=== PATIENT | female | born 1935 | race African-American/Black ===

== ENCOUNTER → 2016-08-12 | Outpatient (CLI) | payer MEDICARE, OTHER ==
[2016-08-12 11:04] LABS: APPEARANCE,URINE CLEAR; BILIRUBIN,URINE NEGATIVE (NEGATIVE); GLUCOSE, URINE NEGATIVE (NEGATIVE); KETONES,URINE NEGATIVE (NEGATIVE); LEUKOCYTE ESTERASE,URINE NEGATIVE (NEGATIVE); NITRITE,URINE NEGATIVE (NEGATIVE); PROTEIN,URINE NEGATIVE (NEGATIVE); URINE SPECIFIC GRAVITY 1.008; UROBILINOGEN,URINE NEGATIVE mg/dL (<2.0)
[2016-08-12 11:17] LABS: ABSOLUTE EOSINOPHILS # (AUTO) 0.2 10^3/uL (0.0-0.6); ABSOLUTE LYMPHOCYTES (AUTO) 1.9 10^3/uL (0.5-4.7); ABSOLUTE MONOCYTES (AUTO) 0.6 10^3/uL (0.1-1.4); BASOPHILS % (AUTO) 0.5 % (0-2); EOSINOPHILS % (AUTO) 3.4 % (0-6); HEMATOCRIT 37.4 % (36.0-47.0); HEMOGLOBIN 12.1 g/dL (12.0-15.5); HGB HCT DIFFERENCE -1.1; MEAN CORPUSCULAR HEMOGLOBIN 27.8 pg (27.0-33.4); MEAN CORPUSCULAR HGB CONC 32.4 g/dL (32.0-36.0); MEAN CORPUSCULAR VOLUME 86 fl (80-97); MONOCYTES % (AUTO) 9.8 % (3-13); RED BLOOD COUNT 4.37 10^6/uL (3.72-5.28); RED CELL DISTRIBUTION WIDTH 15.3 % (11.5-14.0); SEGMENTED NEUTROPHILS % (AUTO) 53.3 % (42-78); WHITE BLOOD COUNT 5.7 10^3/uL (4.0-10.5)
[2016-08-12 11:35] LABS: ANION GAP 9 (5-19); BLOOD UREA NITROGEN 36 mg/dL (7-20); CALCIUM 9.5 mg/dL (8.4-10.2); CARBON DIOXIDE 25 mmol/L (22-30); CHLORIDE 106 mmol/L (98-107); CREATININE RESULT 1.69 mg/dL (0.52-1.25); GLUCOSE 97 mg/dL (75-110); POTASSIUM 5.4 mmol/L (3.6-5.0); SODIUM 139.8 mmol/L (137-145)
== END ==
LOC: OD 10:02
PROVIDERS: ATTEND Internal Medicine Nephrology
DX: I12.9 Hypertensive chronic kidney disease with stage 1 through stage 4 chronic kidney disease, or unspecified chronic kidney disease (principal); N18.3 Chronic kidney disease, stage 3 (moderate); E87.5 Hyperkalemia
CPT/HCPCS: 36415; 80048; 81001; 85025

== ENCOUNTER → 2016-08-12 | Outpatient (CLI) | payer MEDICARE, OTHER ==
--- NOTE | 2016-08-12 12:33 | WOMENS IMAGING REPORT ---
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 Additional selected color Doppler and spectral images recorded. LIMITATIONS: None. FINDINGS: RIGHT KIDNEY: Normal size, 10.9 x 4.9 x 5.4 cm. Normal echogenicity. No solid or susp icious masses. No hydronephrosis. No calcifications. LEFT KIDNEY: Normal size, 9.3 x 4.7 x 4.8 cm. Normal echogenicity. No solid or suspicious masses . No hydronephrosis. No calcifications. BLADDER: The bladder is incompletely filled but generally unremarkable. OTHER FINDINGS: No other significant finding. IMPRESSION: NORMAL RENAL AND BLADDER ULTRASOUND. TECHNICAL DOCUMENTATION: JOB ID: [id number] [employer]- All Rights Reserved
== END ==
LOC: RAD 09:12
PROVIDERS: ATTEND Internal Medicine Nephrology
DX: I12.9 Hypertensive chronic kidney disease with stage 1 through stage 4 chronic kidney disease, or unspecified chronic kidney disease (principal); N18.3 Chronic kidney disease, stage 3 (moderate)
CPT/HCPCS: 36415; 76770; 80048; 81001; 85025

== ENCOUNTER → 2016-09-03 | Outpatient (CLI) | payer MEDICARE, OTHER | LOC: OD 09:59 | PROVIDERS: ATTEND Internal Medicine Nephrology | DX: E87.5 Hyperkalemia (principal) | CPT/HCPCS: 36415; 84132 ==

== ENCOUNTER → 2016-09-06 | Outpatient (CLI) | payer MEDICARE, OTHER | LOC: OD 07:05 | PROVIDERS: ATTEND Physician Assistant Medical | DX: E87.5 Hyperkalemia (principal) | CPT/HCPCS: 36415; 84132 ==

== ENCOUNTER → 2016-11-15 | Outpatient (CLI) | payer MEDICARE, OTHER ==
--- NOTE | 2016-11-15 17:13 | WOMENS IMAGING REPORT ---
EXAM DESCRIPTION: 3D SCREENING MAMMO BILAT COMPLETED DATE/TIME: 11/15/2016 8:45 am REASON FOR STUDY: SCREENING MAMMO Z12.31 ENCNTR SCREEN MAMMOGRAM FOR MALIGNANT NEOPLASM OF [place] COMPARISON: 11/13/2015 and 08/13/2014. TECHNIQUE: Standard craniocaudal and mediolateral oblique views of each breast recorded using digita l acquisition and breast tomosynthesis. LIMITATIONS: None. FINDINGS: No masses, calcifications or architectural distortion. No areas of suspicion. Read with the assistance of CAD. .[facility] - R2 Cenova Version 1.3 .[facility] - R2 Cenova Version 1.3 .[facility] - R2 Cenova Version 2.4 .[facility] - R2 Cenova Version 2.4 .[facility] - R2 Trick Rodeo Rider Version 9.2 IMPRESSION: NORMAL MAMMOGRAM. BIRADS 1. BREAST DENSITY: b. There are scattered areas of fibroglandular density. BIRAD: 1 NEGATIVE RECOMMENDATION: ROUTINE SCREENING COMMENT: The patient has been notified of the results by letter per SA requirements. Additional no tification policies are in place for contacting patient with suspicious or incomplete findings. Quality ID #[id number]: The [employer] recommends an annual screening mammogram for women aged 40 years or over. This facility utilizes a reminder system to ensure that all patients receive reminder letters, and/or direct phone calls for appointments. This includes reminders for routine scr eening mammograms, diagnostic mammograms, or other Breast Imaging Interventions when appropriate. Th is patient will be placed in the appropriate reminder system. The [employer] (ACR) has developed recommendations for screening MRI of the breast s in certain patient populations, to be used in conjunction with mammography. Breast MRI surveillanc e may be appropriate for women with more than 20% lifetime risk of developing breast cancer as deter mined by genetic testing, significant family history of the disease, or history of mantle radiation f or Hodgkins Disease. ACR Practice Guidelines 2008. DBT Technology DBT is a type of tomographic mammography. With conventional mammography, overlapping breast tissue ma y make lesions difficult to detect, even with good compression. DBT uses an x-ray tube that rotates a round the breast, taking images at different angles. These images are then combined to create thin sl ices of the breast that the radiologist can view as a 3D reconstruction. The [employer] (PVT) unit can perform full-field digital mammograms (2D imaging); or DBT (3D imaging); or both, in a combination mode that quickly performs both the mammogram and the tomosynthesis scan while the breast is still compressed. PQRS 6045F: Fluoroscopic imaging is not utilized for breast tomosynthesis. TECHNICAL DOCUMENTATION: FINDING NUMBER: (1) ASSESSMENT: (1) JOB ID: [id number] [employer]- All Rights Reserved
== END ==
LOC: WI 07:48
PROVIDERS: ATTEND Internal Medicine Geriatric Medicine
DX: Z12.31 Encounter for screening mammogram for malignant neoplasm of breast (principal)
CPT/HCPCS: 77063; G0202; 77067

== ENCOUNTER → 2017-03-24 | Outpatient (CLI) | payer MEDICARE, OTHER ==
[2017-03-24 10:59] LABS: HEMATOCRIT 38.7 % (36.0-47.0); HEMOGLOBIN 12.8 g/dL (12.0-15.5); MEAN CORPUSCULAR HEMOGLOBIN 27.4 pg (27.0-33.4); MEAN CORPUSCULAR HGB CONC 33.1 g/dL (32.0-36.0); MEAN CORPUSCULAR VOLUME 83 fl (80-97); PLATELET COUNT 358 10^3/uL (150-450); RED BLOOD COUNT 4.67 10^6/uL (3.72-5.28); RED CELL DISTRIBUTION WIDTH 15.2 % (11.5-14.0); WHITE BLOOD COUNT 5.7 10^3/uL (4.0-10.5)
[2017-03-24 11:15] LABS: ANION GAP 10 (5-19); BLOOD UREA NITROGEN 25 mg/dL (7-20); CALCIUM 10.4 mg/dL (8.4-10.2); CARBON DIOXIDE 25 mmol/L (22-30); CHLORIDE 106 mmol/L (98-107); GLUCOSE 97 mg/dL (75-110); POTASSIUM 5.2 mmol/L (3.6-5.0); SODIUM 141.1 mmol/L (137-145)
== END ==
LOC: OD 10:19
PROVIDERS: ATTEND Physician Assistant Medical
DX: I12.9 Hypertensive chronic kidney disease with stage 1 through stage 4 chronic kidney disease, or unspecified chronic kidney disease (principal); N18.3 Chronic kidney disease, stage 3 (moderate); E87.5 Hyperkalemia
CPT/HCPCS: 36415; 80048; 85027

== ENCOUNTER → 2017-06-23 | Outpatient (CLI) | payer MEDICARE, OTHER ==
[2017-06-23 14:24] LABS: ANION GAP 12 (5-19); BLOOD UREA NITROGEN 34 mg/dL (7-20); CALCIUM 10.2 mg/dL (8.4-10.2); CARBON DIOXIDE 25 mmol/L (22-30); CHLORIDE 107 mmol/L (98-107); GLUCOSE 110 mg/dL (75-110); POTASSIUM 5.1 mmol/L (3.6-5.0); SODIUM 143.6 mmol/L (137-145)
== END ==
LOC: OD 12:21
PROVIDERS: ATTEND Internal Medicine Geriatric Medicine
DX: R89.9 Unspecified abnormal finding in specimens from other organs, systems and tissues (principal)
CPT/HCPCS: 36415; 80048

== ENCOUNTER → 2017-10-17 | Outpatient (CLI) | payer MEDICARE, OTHER ==
[2017-10-17 11:00] LABS: HEMATOCRIT 38.6 % (36.0-47.0); HEMOGLOBIN 13.2 g/dL (12.0-15.5); MEAN CORPUSCULAR HEMOGLOBIN 27.6 pg (27.0-33.4); MEAN CORPUSCULAR HGB CONC 34.2 g/dL (32.0-36.0); MEAN CORPUSCULAR VOLUME 81 fl (80-97); PLATELET COUNT 343 10^3/uL (150-450); RED BLOOD COUNT 4.78 10^6/uL (3.72-5.28); RED CELL DISTRIBUTION WIDTH 15.2 % (11.5-14.0); WHITE BLOOD COUNT 5.9 10^3/uL (4.0-10.5)
[2017-10-17 12:08] LABS: ANION GAP 13 (5-19); BLOOD UREA NITROGEN 24 mg/dL (7-20); CALCIUM 9.6 mg/dL (8.4-10.2); CARBON DIOXIDE 24 mmol/L (22-30); CHLORIDE 105 mmol/L (98-107); GLUCOSE 105 mg/dL (75-110); POTASSIUM 4.4 mmol/L (3.6-5.0); SODIUM 141.6 mmol/L (137-145)
[2017-10-17 12:29] LABS: APPEARANCE,URINE CLEAR; BILIRUBIN,URINE NEGATIVE (NEGATIVE); COLOR,URINE YELLOW; GLUCOSE, URINE NEGATIVE (NEGATIVE); KETONES,URINE NEGATIVE (NEGATIVE); LEUKOCYTE ESTERASE,URINE NEGATIVE (NEGATIVE); NITRITE,URINE NEGATIVE (NEGATIVE); PROTEIN,URINE NEGATIVE (NEGATIVE); URINE SPECIFIC GRAVITY 1.012; UROBILINOGEN,URINE NEGATIVE mg/dL (<2.0)
== END ==
LOC: OD 10:26
PROVIDERS: ATTEND Physician Assistant Medical
DX: I12.9 Hypertensive chronic kidney disease with stage 1 through stage 4 chronic kidney disease, or unspecified chronic kidney disease (principal); N18.3 Chronic kidney disease, stage 3 (moderate); E87.5 Hyperkalemia
CPT/HCPCS: 36415; 80048; 81001; 83970; 84100; 85027

== ENCOUNTER → 2018-04-06 | Outpatient (CLI) | payer MEDICARE, OTHER ==
[2018-04-06 09:43] LABS: HEMATOCRIT 39.2 % (36.0-47.0); HEMOGLOBIN 13.2 g/dL (12.0-15.5); MEAN CORPUSCULAR HEMOGLOBIN 27.5 pg (27.0-33.4); MEAN CORPUSCULAR HGB CONC 33.7 g/dL (32.0-36.0); MEAN CORPUSCULAR VOLUME 82 fl (80-97); PLATELET COUNT 375 10^3/uL (150-450); RED CELL DISTRIBUTION WIDTH 15.9 % (11.5-14.0); WHITE BLOOD COUNT 6.8 10^3/uL (4.0-10.5)
[2018-04-06 09:50] LABS: APPEARANCE,URINE CLEAR; BILIRUBIN,URINE NEGATIVE (NEGATIVE); COLOR,URINE YELLOW; GLUCOSE, URINE NEGATIVE (NEGATIVE); KETONES,URINE NEGATIVE (NEGATIVE); LEUKOCYTE ESTERASE,URINE TRACE (NEGATIVE); NITRITE,URINE NEGATIVE (NEGATIVE); PROTEIN,URINE NEGATIVE (NEGATIVE); URINE SPECIFIC GRAVITY 1.016; UROBILINOGEN,URINE NEGATIVE mg/dL (<2.0)
[2018-04-06 10:07] LABS: ANION GAP 8 (5-19); BLOOD UREA NITROGEN 23 mg/dL (7-20); CALCIUM 9.8 mg/dL (8.4-10.2); CARBON DIOXIDE 27 mmol/L (22-30); CHLORIDE 107 mmol/L (98-107); GLUCOSE 102 mg/dL (75-110); POTASSIUM 4.9 mmol/L (3.6-5.0); SODIUM 142.1 mmol/L (137-145)
== END ==
LOC: OD 09:01
PROVIDERS: ATTEND Physician Assistant Medical
DX: I12.9 Hypertensive chronic kidney disease with stage 1 through stage 4 chronic kidney disease, or unspecified chronic kidney disease (principal); N18.3 Chronic kidney disease, stage 3 (moderate); E87.5 Hyperkalemia
CPT/HCPCS: 36415; 80048; 81001; 85027

== ENCOUNTER → 2018-10-05 | Outpatient (CLI) | payer MEDICARE, OTHER ==
[2018-10-05 10:51] LABS: HEMATOCRIT 39.1 % (36.0-47.0); HEMOGLOBIN 12.9 g/dL (12.0-15.5); MEAN CORPUSCULAR HGB CONC 33.1 g/dL (32.0-36.0); MEAN CORPUSCULAR VOLUME 82 fl (80-97); PLATELET COUNT 313 10^3/uL (150-450); RED BLOOD COUNT 4.79 10^6/uL (3.72-5.28); WHITE BLOOD COUNT 6.7 10^3/uL (4.0-10.5)
[2018-10-05 11:20] LABS: ANION GAP 11 (5-19); BLOOD UREA NITROGEN 19 mg/dL (7-20); CALCIUM 9.8 mg/dL (8.4-10.2); CARBON DIOXIDE 23 mmol/L (22-30); CHLORIDE 106 mmol/L (98-107); GLUCOSE 98 mg/dL (75-110); POTASSIUM 4.5 mmol/L (3.6-5.0)
== END ==
LOC: OD 10:05
PROVIDERS: ATTEND Physician Assistant Medical
DX: I12.9 Hypertensive chronic kidney disease with stage 1 through stage 4 chronic kidney disease, or unspecified chronic kidney disease (principal); N18.3 Chronic kidney disease, stage 3 (moderate); E87.5 Hyperkalemia
CPT/HCPCS: 36415; 80048; 85027

== ENCOUNTER → 2019-05-05 | Outpatient (CLI) | payer MEDICARE, OTHER ==
[2019-05-05 09:54] LABS: ABSOLUTE EOSINOPHILS # (AUTO) 0.2 10^3/uL (0.0-0.6); ABSOLUTE LYMPHOCYTES (AUTO) 1.7 10^3/uL (0.5-4.7); ABSOLUTE MONOCYTES (AUTO) 0.7 10^3/uL (0.1-1.4); ABSOLUTE NEUT (AUTO) 3.3 10^3/uL (1.7-8.2); BASOPHILS % (AUTO) 0.4 % (0-2); HEMATOCRIT 37.9 % (36.0-47.0); HEMOGLOBIN 12.6 g/dL (12.0-15.5); LYMPHOCYTES % (AUTO) 28.8 % (13-45); MEAN CORPUSCULAR HEMOGLOBIN 28.7 pg (27.0-33.4); MEAN CORPUSCULAR HGB CONC 33.2 g/dL (32.0-36.0); MEAN CORPUSCULAR VOLUME 87 fl (80-97); MONOCYTES % (AUTO) 11.3 % (3-13); PLATELET COUNT 367 10^3/uL (150-450); RED BLOOD COUNT 4.39 10^6/uL (3.72-5.28); RED CELL DISTRIBUTION WIDTH 14.9 % (11.5-14.0); SEGMENTED NEUTROPHILS % (AUTO) 56.5 % (42-78); TOTAL CELLS COUNTED % (AUTO) 100 %; WHITE BLOOD COUNT 5.8 10^3/uL (4.0-10.5)
[2019-05-05 09:58] LABS: APPEARANCE,URINE CLEAR; BILIRUBIN,URINE NEGATIVE (NEGATIVE); COLOR,URINE STRAW; GLUCOSE, URINE NEGATIVE (NEGATIVE); KETONES,URINE NEGATIVE (NEGATIVE); LEUKOCYTE ESTERASE,URINE NEGATIVE (NEGATIVE); NITRITE,URINE NEGATIVE (NEGATIVE); PROTEIN,URINE NEGATIVE (NEGATIVE); URINE SPECIFIC GRAVITY 1.009; UROBILINOGEN,URINE NEGATIVE mg/dL (<2.0)
[2019-05-05 10:51] LABS: ANION GAP 9 (5-19); BLOOD UREA NITROGEN 32 mg/dL (7-20); CALCIUM 9.7 mg/dL (8.4-10.2); CARBON DIOXIDE 24 mmol/L (22-30); CHLORIDE 104 mmol/L (98-107); GLUCOSE 100 mg/dL (75-110); POTASSIUM 5.2 mmol/L (3.6-5.0)
== END ==
LOC: OD 08:44
PROVIDERS: ATTEND Physician Assistant Medical
DX: I12.9 Hypertensive chronic kidney disease with stage 1 through stage 4 chronic kidney disease, or unspecified chronic kidney disease (principal); N18.3 Chronic kidney disease, stage 3 (moderate); R60.9 Edema, unspecified; E87.5 Hyperkalemia
CPT/HCPCS: 36415; 80048; 81001; 85025

== ENCOUNTER → 2019-08-01 | Outpatient (CLI) | payer MEDICARE, OTHER ==
[2019-08-01 10:00] LABS: ABSOLUTE EOSINOPHILS # (AUTO) 0.2 10^3/uL (0.0-0.6); ABSOLUTE LYMPHOCYTES (AUTO) 1.9 10^3/uL (0.5-4.7); ABSOLUTE MONOCYTES (AUTO) 0.6 10^3/uL (0.1-1.4); ABSOLUTE NEUT (AUTO) 3.2 10^3/uL (1.7-8.2); BASOPHILS % (AUTO) 0.6 % (0-2); EOSINOPHILS % (AUTO) 3.1 % (0-6); HEMATOCRIT 38.9 % (36.0-47.0); HEMOGLOBIN 13.1 g/dL (12.0-15.5); LYMPHOCYTES % (AUTO) 32.2 % (13-45); MEAN CORPUSCULAR HEMOGLOBIN 28.7 pg (27.0-33.4); MEAN CORPUSCULAR HGB CONC 33.7 g/dL (32.0-36.0); MEAN CORPUSCULAR VOLUME 85 fl (80-97); MONOCYTES % (AUTO) 10.4 % (3-13); PLATELET COUNT 346 10^3/uL (150-450); RED BLOOD COUNT 4.58 10^6/uL (3.72-5.28); RED CELL DISTRIBUTION WIDTH 14.8 % (11.5-14.0); SEGMENTED NEUTROPHILS % (AUTO) 53.7 % (42-78); TOTAL CELLS COUNTED % (AUTO) 100 %
[2019-08-01 10:01] LABS: APPEARANCE,URINE CLEAR; BILIRUBIN,URINE NEGATIVE (NEGATIVE); COLOR,URINE YELLOW; GLUCOSE, URINE NEGATIVE (NEGATIVE); KETONES,URINE NEGATIVE (NEGATIVE); LEUKOCYTE ESTERASE,URINE NEGATIVE (NEGATIVE); NITRITE,URINE NEGATIVE (NEGATIVE); PROTEIN,URINE NEGATIVE (NEGATIVE); URINE SPECIFIC GRAVITY 1.011; UROBILINOGEN,URINE NEGATIVE mg/dL (<2.0)
[2019-08-02 09:41] LABS: ANION GAP 6 (5-19); BLOOD UREA NITROGEN 33 mg/dL (7-20); CALCIUM 10.2 mg/dL (8.4-10.2); CARBON DIOXIDE 26 mmol/L (22-30); CHLORIDE 105 mmol/L (98-107); GLUCOSE 107 mg/dL (75-110); POTASSIUM 5.3 mmol/L (3.6-5.0)
== END ==
LOC: OD 08:39
PROVIDERS: ATTEND Physician Assistant Medical
DX: N18.3 Chronic kidney disease, stage 3 (moderate) (principal); I12.9 Hypertensive chronic kidney disease with stage 1 through stage 4 chronic kidney disease, or unspecified chronic kidney disease; R60.9 Edema, unspecified; E87.5 Hyperkalemia
CPT/HCPCS: 36415; 80048; 81001; 85025

== ENCOUNTER 2020-03-16 11:57 | Inpatient (IN) | payer MEDICARE, OTHER ==
--- NOTE | 2020-03-16 12:41 | ER Document Report ---
Entered by BITA CALIXTO SCRIBE 03/16/20 1212 Acting as scribe for:CHILANGO JACKSON MD ED Respiratory Problem - General Stated Complaint: DIFFICULTY BREATHING, SORE THROAT Time Seen by Provider: 03/16/20 12:10 Primary Care Provider: HARVEY KEITH PA-C [ALLIED HEALTH PROFESSIONAL] - Follow up as needed Mode of Arrival: Wheelchair Information source: Patient Notes: This 84 year old female patient with a history of hypertension and COPD presents to the ED today with complaints of shortness of breath for the past x2-3 days. Patient states "my COPD has been giving me trouble." She reports that she developed a mild productive cough with pale yellow sputum this morning. Denies fever. Denies any known COVID exposure. Dr. Craig is her PCP. TRAVEL OUTSIDE OF THE [place] IN LAST 30 DAYS: No - Related Data Allergies/Adverse Reactions: Penicillins Allergy (Mild, Verified 05/09/14 20:36) Rash Past Medical History - General Information source: Patient, [facility] Records - Social History Smoking Status: Former Smoker - quit x30-40 years ago Cigarette use (# per day): No Chew tobacco use (# tins/day): No Smoking Education Provided: No Frequency of alcohol use: None Drug Abuse: None Family History: Reviewed & Not Pertinent - Past Medical History Cardiac Medical History: Reports: Hx Hypercholesterolemia, Hx Hypertension Pulmonary Medical History: Reports: Hx Asthma, Hx COPD GI Medical History: Reports: Hx Gastroesophageal Reflux Disease Past Surgical History: Reports: Hx Section - x2, Other - Right cataract surgeries, last in 12/2019 - Immunizations Hx Diphtheria, Pertussis, Tetanus Vaccination: Yes Review of Systems - Review of Systems Constitutional: See HPI. denies: Fever EENT: No symptoms reported Cardiovascular: No symptoms reported Respiratory: See HPI, Cough, Short of breath, Sputum Gastrointestinal: No symptoms reported Genitourinary: No symptoms reported Female Genitourinary: No symptoms reported Musculoskeletal: No symptoms reported Skin: No symptoms reported Hematologic/Lymphatic: No symptoms reported Neurological/Psychological: No symptoms reported -: Yes All other systems reviewed and negative Physical Exam - Vital signs Vitals: Temp Pulse Resp BP Pulse Ox 99.6 F 109 H 20 146/71 H 90 L 03/16/20 12:02 03/16/20 12:02 03/16/20 12:02 03/16/20 12:02 03/16/20 12:02 - General General appearance: Alert In distress: None - HEENT Head: Normocephalic, Atraumatic Eyes: Normal Extraocular movements intact: Yes Pupils: PERRL Neck: Normal, Supple - Respiratory Respiratory status: Tachypnea, Other - 93-94% O2 saturation on room air Chest status: Nontender Breath sounds: Rhonchi. No: Wheezing Chest palpation: Normal - Cardiovascular Rhythm: Regular, Tachycardia Heart sounds: Normal auscultation Murmur: No - Abdominal Inspection: Obese Distension: No distension Bowel sounds: Normal Tenderness: Nontender - Abdomen soft Organomegaly: No organomegaly - Back Back: Normal, Nontender - Extremities General upper extremity: Normal inspection General lower extremity: Normal inspection. No: Edema - Neurological Neuro grossly intact: Yes Orientation: AAOx4 Kimberly Coma Scale Eye Opening: Spontaneous Industry Coma Scale Verbal: Oriented Kimberly Coma Scale Motor: Obeys Commands Industry Coma Scale Total: 15 - Psychological Associated symptoms: Normal affect, Normal mood - Skin Skin Temperature: Warm Skin Moisture: Dry Skin Color: Normal Course - Re-evaluation Re-evalutation: 03/16/20 17:29 The patient was evaluated during the global COVID-19 pandemic and that diagnosis was suspected/considered upon their initial presentation. Their evaluation, treatment and testing was consistent with current guidelines for patients who present with complaints or symptoms that may be related to COVID-19. The patient's history and physical and laboratory findings were most consistent with coronavirus, so Covid test was done was positive. The D-dimer is slightly elevated at 0.88. Due to the high prevalence of pulmonary embolus we are seeing in Covid pneumonia patients with tachypnea and hypoxia, CTa chest was also or dered. Dr. Darden was made aware of the CTA chest that was ordered, and I will also ask Dr. Beckman to keep an eye out for the report. 03/16/20 17:30 - Vital Signs Vital signs: Temp Pulse Resp BP Pulse Ox 98.2 F 109 H 25 H 156/79 H 96 03/16/20 17:01 03/16/20 12:02 03/16/20 17:01 03/16/20 17:01 03/16/20 17:01 - Laboratory Results Result Diagrams: 03/16/20 12:28 03/16/20 12:28 Laboratory Results Interpreted: 03/16/20 03/16/20 03/16/20 12:28 12:28 12:28 RDW 15.0 H D-Dimer 0.88 H Sodium 130.5 L Carbon Dioxide 20 L Est GFR (MDRD) Non-Af 52 L Glucose 115 H Ferritin 286.00 H Direct Bilirubin 0.6 H AST 55 H Lactate Dehydrogenase C-Reactive Protein 183.1 H Urine Protein Urine Urobilinogen Ur Leukocyte Esterase SARS-CoV-2 Rap RNA(RT-PCR) 03/16/20 03/16/20 03/16/20 12:28 13:25 14:54 RDW D-Dimer Sodium Carbon Dioxide Est GFR (MDRD) Non-Af Glucose Ferritin Direct Bilirubin AST Lactate Dehydrogenase 337 H C-Reactive Protein Urine Protein 30 H Urine Urobilinogen 4.0 H Ur Leukocyte Esterase TRACE H SARS-CoV-2 Rap RNA(RT-PCR) POSITIVE H Critical Laboratory Results Reviewed: Yes - CRP, LDH, ferritin, elevated consistent with Covid 19 pneumonia diagnosis Attending or Supervising Physician who Reviewed Labs: CHILANGO JACKSON - Radiology Results Radiology Results Interpreted: 03/16/20 15:56 Radiologist read the chest x-ray as suggestive of early CHF exacerbation superimposed infection not excluded. Clinically and by laboratory evaluation the patient has Covid pneumonia. Critical Radiology Results Reviewed: Yes Attending or Supervising Physician who Reviewed Radiology: CHILANGO JACKSON - Covid pneumonia on chest x-ray - EKG Interpretation by Mi EKG shows normal: Sinus rhythm, [place], Intervals, QRS Complexes, ST-T Waves Rate: Normal - 93 Rhythm: NSR - Consults Dr. Darden Time consulted: 17:15 Consulted provider: will see as inpatient Discharge - Discharge Clinical Impression: Pneumonia due to 2019-nCoV, Hypoxemia Fever Qualifiers: Fever type: unspecified Qualified Code(s): R50.9 - Fever, unspecified Condition: Good Disposition: ADMITTED INPATIENT Admitting Provider: Rafa Darden covering and will write orders. Unit Admitted: IMCU Referrals: HARVEY KEITH PA-C [ALLIED HEALTH PROFESSIONAL] - Follow up as needed I personally performed the services described in the documentation, reviewed and edited the documentation which was dictated to the scribe in my presence, and it accurately records my words and actions.
[2020-03-16 12:45] LABS: ABSOLUTE LYMPHOCYTES (AUTO) 1.2 10^3/uL (0.5-4.7); ABSOLUTE MONOCYTES (AUTO) 0.7 10^3/uL (0.1-1.4); ABSOLUTE NEUT (AUTO) 4.5 10^3/uL (1.7-8.2); BASOPHILS % (AUTO) 0.3 % (0-2); EOSINOPHILS % (AUTO) 0.1 % (0-6); HEMATOCRIT 37.3 % (36.0-47.0); HEMOGLOBIN 12.7 g/dL (12.0-15.5); LYMPHOCYTES % (AUTO) 19.1 % (13-45); MEAN CORPUSCULAR HEMOGLOBIN 27.7 pg (27.0-33.4); MEAN CORPUSCULAR HGB CONC 33.9 g/dL (32.0-36.0); MEAN CORPUSCULAR VOLUME 82 fl (80-97); MONOCYTES % (AUTO) 11.2 % (3-13); PLATELET COUNT 432 10^3/uL (150-450); RED BLOOD COUNT 4.57 10^6/uL (3.72-5.28); SEGMENTED NEUTROPHILS % (AUTO) 69.3 % (42-78); TOTAL CELLS COUNTED % (AUTO) 100 %; WHITE BLOOD COUNT 6.5 10^3/uL (4.0-10.5)
--- NOTE | 2020-03-16 12:53 | RADIOLOGY REPORT (SQ) ---
EXAM DESCRIPTION: CHEST SINGLE VIEW IMAGES COMPLETED DATE/TIME: 03/16/2020 12:37 pm REASON FOR STUDY: Dyspnea, COPD COMPARISON: 07/09/2009 EXAM PARAMETERS: NUMBER OF VIEWS: One view. TECHNIQUE: Single frontal radiographic view of the chest acquired. RADIATION DOSE: NA LIMITATIONS: None. FINDINGS: LUNGS AND PLEURA: Bibasilar airspace opacities. A small left-sided pleural effusion may b e present. No pneumothorax. MEDIASTINUM AND HILAR STRUCTURES: Re- demonstration of a large hiatal hernia. No masses. HEART AND VASCULAR STRUCTURES: Cardiomegaly with central vascular congestion. BONES: No acute findings. HARDWARE: None in the chest. OTHER: No other significant finding. IMPRESSION: 1. Findings suggest early CHF exacerbation. Superimposed infection not excluded. 2. Large hiatal hernia better characterized on comparison radiographs. TECHNICAL DOCUMENTATION: JOB ID: [id number] 2010 [employer]- All Rights Reserved Reading location - IP/workstation name: [email or web address]
[2020-03-16 13:14] LABS: ALBUMIN 3.5 g/dL (3.5-5.0); ALKALINE PHOSPHATASE 51 U/L (38-126); ANION GAP 10 (5-19); ASPARTATE AMINO TRANSFERASE 55 U/L (14-36); BILIRUBIN,DIRECT 0.6 mg/dL (0.0-0.4); BILIRUBIN,TOTAL 0.9 mg/dL (0.2-1.3); BLOOD UREA NITROGEN 11 mg/dL (7-20); CALCIUM 9.3 mg/dL (8.4-10.2); CARBON DIOXIDE 20 mmol/L (22-30); CHLORIDE 101 mmol/L (98-107); CREATINE KINASE 47 U/L (30-135); GLUCOSE 115 mg/dL (75-110); POTASSIUM 4.3 mmol/L (3.6-5.0); TOTAL PROTEIN 6.8 g/dL (6.3-8.2)
[2020-03-16 13:26] LABS: C-REACTIVE PROTEIN 183.1 mg/L (<10.0)
[2020-03-16 13:44] LABS: APPEARANCE,URINE CLEAR; BILIRUBIN,URINE NEGATIVE (NEGATIVE); COLOR,URINE YELLOW; GLUCOSE, URINE NEGATIVE (NEGATIVE); KETONES,URINE NEGATIVE (NEGATIVE); LEUKOCYTE ESTERASE,URINE TRACE (NEGATIVE); NITRITE,URINE NEGATIVE (NEGATIVE); PROTEIN,URINE 30 mg/dL (NEGATIVE); URINE SPECIFIC GRAVITY 1.017
[2020-03-16] MEDS ORDERED: ACETAMINOPHEN 325 MG TABLET PO ONE (15:58)
[2020-03-16] MEDS ORDERED: OXYCODONE-ACETAMINOPHEN 5-325 MG TABLET PO PRN (18:44)
[2020-03-16] MEDS ORDERED: TEMAZEPAM 7.5 MG CAPSULE PO PRN (18:44)
[2020-03-16] MEDS ORDERED: AZITHROMYCIN 250 MG TABLET PO ONE (18:44)
--- NOTE | 2020-03-16 18:54 | RADIOLOGY REPORT (SQ) ---
EXAM DESCRIPTION: CTA CHEST IMAGES COMPLETED DATE/TIME: 03/16/2020 6:16 pm REASON FOR STUDY: Covid pna,elevated dimer,hypoxemia, tachycardia COMPARISON: AP chest 03/16/2020 TECHNIQUE: CT scan of the chest performed using helical scanning technique with dynamic intravenous contrast injection. Images reviewed with lung, soft tissue and bone windows. Reconstructed coronal and sagittal MPR images reviewed. Additional 3 dimensional post-processing performed to develop Maximal Intensity Projection images (NM P). All images stored on PACS. All CT scanners at this facility use dose modulation, iterative reconstruction, and/or weight based d osing when appropriate to reduce radiation dose to as low as reasonably achievable (ALARA). [facility]: Dose Right [facility]: CareDose [facility]: Dose Right [facility]: Teradose 4D [facility]: MD Insider CONTRAST TYPE AND DOSE: contrast/concentration: Isovue 350.00 mmol/ml; Total Contrast Delivered: 75. 0 ml; Total Saline Delivered: 38.0 ml Contrast bolus adequate for pulmonary arteries and aorta. RENAL FUNCTION: Creatinine 0.9 RADIATION DOSE: CT Rad equipment meets quality standard of care and radiation dose reduction techniq ues were employed. CTDIvol: 9.9 - 19.2 mGy. DLP: 698 mGy-cm. . LIMITATIONS: None. FINDINGS: LUNGS AND PLEURA: There are patchy bilateral peripheral alveolar and interstitial infiltra lillian worrisome for pneumonia There is more dense focal consolidation in the posterior left lung base, atelectasis versus pneumonia No pleural effusion. No pneumothorax. AORTA AND GREAT VESSELS: No thoracic aortic aneurysm or dissection HEART: No pericardial effusion. No significant coronary artery calcifications. PULMONARY ARTERIES: No emboli visualized in the main pulmonary arteries or the segmental branches. HILAR AND MEDIASTINAL STRUCTURES: There is a massive retrocardiac hernia containing the entire stomac h, omental fat, and a portion of the pancreatic body. This is best shown on coronal reconstruction i mages 42-57. HARDWARE: None in the chest. UPPER ABDOMEN: No significant findings. Limited exam. THYROID AND OTHER SOFT TISSUES: No masses. No adenopathy. BONES: No acute or significant finding. 3D MIPS: Confirm above findings. OTHER: No other significant finding. IMPRESSION: No CT angio evidence of acute pulmonary emboli. Patchy bilateral peripheral alveolar and interstitial infiltrates. 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, omental fat, and a portion of the midbody pancreas COMMENT: Quality ID # [id number]: Final reports with documentation of one or more dose reduction techniques (e.g., Automated exposure control, adjustment of the mA and/or kV according to patient size, use of iterative reconstruction technique) TECHNICAL DOCUMENTATION: JOB ID: [id number] 2010 [employer]- All Rights Reserved Reading location - IP/workstation name: [email or web address]
[2020-03-16] MEDS ORDERED: DEXAMETHASONE SOD PHOS INJ 10 MG/1 ML VIAL IV ONE (19:15)
[2020-03-16] MEDS ORDERED: ZINC SULFATE 220 MG CAPSULE PO ONE (19:15)
[2020-03-16] MEDS ORDERED: CHOLECALCIFEROL (D3) 1,000 UNIT (25 MCG) TABLET PO ONE (19:15)
[2020-03-16] MEDS ORDERED: ASCORBIC ACID 500 MG TABLET PO ONE (19:15)
[2020-03-16] MEDS ORDERED: ENOXAPARIN SODIUM INJ 40 MG/0.4 ML DISP.SYRIN SUBCUT ONE (19:15)
[2020-03-16] MEDS ORDERED: ASPIRIN 81 MG TABLET, ENT COATED PO ONE (20:00)
[2020-03-16] MEDS: RINGERS SOLUTION,LACTATED 1,000 ML IV PRN (20:45)
[2020-03-16 21:33] LABS: PROTHROMBIN TIME 16.3 SEC (11.4-15.4)
[2020-03-16 21:34] LABS: FIBRINOGEN 539 mg/dL (209-497)
[2020-03-16 21:35] LABS: PARTIAL THROMBOPLASTIN TIME 50.9 SEC (23.5-35.8)
[2020-03-17] MEDS: PANTOPRAZOLE SODIUM 20 MG TABLET.DR PO SCH (05:24)
[2020-03-17] MEDS ORDERED: ASPIRIN 81 MG TABLET, ENT COATED PO SCH (10:00)
[2020-03-17 10:21] LABS: ABSOLUTE LYMPHOCYTES (AUTO) 0.6 10^3/uL (0.5-4.7); ABSOLUTE MONOCYTES (AUTO) 0.2 10^3/uL (0.1-1.4); ABSOLUTE NEUT (AUTO) 2.5 10^3/uL (1.7-8.2); BASOPHILS % (AUTO) 0.5 % (0-2); EOSINOPHILS % (AUTO) 0.1 % (0-6); HEMATOCRIT 34.4 % (36.0-47.0); HEMOGLOBIN 11.4 g/dL (12.0-15.5); LYMPHOCYTES % (AUTO) 18.9 % (13-45); MEAN CORPUSCULAR HEMOGLOBIN 27.3 pg (27.0-33.4); MEAN CORPUSCULAR HGB CONC 33.1 g/dL (32.0-36.0); MEAN CORPUSCULAR VOLUME 82 fl (80-97); MONOCYTES % (AUTO) 6.9 % (3-13); PLATELET COUNT 412 10^3/uL (150-450); RED BLOOD COUNT 4.17 10^6/uL (3.72-5.28); SEGMENTED NEUTROPHILS % (AUTO) 73.6 % (42-78); TOTAL CELLS COUNTED % (AUTO) 100 %; WHITE BLOOD COUNT 3.4 10^3/uL (4.0-10.5)
[2020-03-17] MEDS ORDERED: REMDESIVIR 200 MG in NORMAL SALINE 250 ML IV ONE (10:30)
[2020-03-17] MEDS: ASCORBIC ACID 500 MG TABLET PO SCH ×2 (10:40→18:30)
[2020-03-17] MEDS: CHOLECALCIFEROL (D3) 1,000 UNIT (25 MCG) TABLET PO SCH (10:41)
[2020-03-17] MEDS: ZINC SULFATE 220 MG CAPSULE PO SCH (10:41)
[2020-03-17] MEDS: DEXAMETHASONE SOD PHOS INJ 10 MG/1 ML VIAL IV SCH (10:41)
[2020-03-17 10:43] LABS: ALBUMIN 3.5 g/dL (3.5-5.0); ALKALINE PHOSPHATASE 51 U/L (38-126); ANION GAP 12 (5-19); ASPARTATE AMINO TRANSFERASE 51 U/L (14-36); BILIRUBIN,DIRECT 0.6 mg/dL (0.0-0.4); BILIRUBIN,TOTAL 0.9 mg/dL (0.2-1.3); BLOOD UREA NITROGEN 19 mg/dL (7-20); CALCIUM 9.5 mg/dL (8.4-10.2); CARBON DIOXIDE 20 mmol/L (22-30); CHLORIDE 100 mmol/L (98-107); CREATINE KINASE 42 U/L (30-135); GLUCOSE 148 mg/dL (75-110); POTASSIUM 4.5 mmol/L (3.6-5.0); TOTAL PROTEIN 6.9 g/dL (6.3-8.2)
[2020-03-17 10:56] LABS: C-REACTIVE PROTEIN 168.1 mg/L (<10.0)
[2020-03-17] MEDS ORDERED: IVERMECTIN 3 MG TABLET PO ONE ×2 (11:00→11:30)
[2020-03-17] MEDS: RINGERS SOLUTION,LACTATED 1,000 ML IV PRN (16:18)
[2020-03-17] MEDS: AZITHROMYCIN 250 MG TABLET PO SCH (18:29)
--- NOTE | 2020-03-17 21:12 | PDOC H&P ---
History of Present Illness Admission Date/PCP: 03/16/20 18:21 [facility] HERRERA History of Present Illness: JERROD STANLEY is a 84 year old female patient known to my practice who was evaluated in the office on 03/12/2020 for right earache. She had moderate amount of wax collection which was removed and prescribed NPH otic solution. She presented to the ED on 03/16/2020 due to worsening difficulty with breathing and reported hypoxemia with oxygen saturation in the range of 81-88% on room air at home. She reported slightly productive coughing and family reported that she was not her usual self. she denied any definite fever or chills. No chest pain or palpitation. No nausea, vomiting, or abdominal pain. She denied any known exposure to acutely ill someone or recently diagnosed with COVID-19 infection. Her initial ED evaluation was significant chest X ray and CTA chest and Abdom inal that revealed bilateral lower lobe air space disease process suggestive of pneumonia and her positive serology test for anne virus infection. No demonstrable pulmonary embolism to account for her hypoxemia. Incidental findings of severe retrocardia hernia. Her morbidities are as listed below. she was advised hospitalization for further evaluation and management. Past Medical History Cardiac Medical History: Reports: Hyperlipidema, Hypertension Pulmonary Medical History: Reports: Asthma, Chronic Obstructive Pulmonary Diseas e (COPD) GI Medical History: Reports: Gastroesophageal Reflux Disease Psychiatric Medical History: Denies: Depression Past Surgical History Past Surgical History: Reports: Section - x2, Other - Right cataract surgeries, last in 12/2019 Social History Smoking Status: Former Smoker Electronic Cigarette use?: No Frequency of Alcohol Use: None Hx Recreational Drug Use: No Drugs: None Hx Prescription Drug Abuse: No - Advance Directive Resuscitation Status: Full Code Family History Family History: Reviewed & Not Pertinent Parental Family History Reviewed: Yes Children Family History Reviewed: Yes Sibling(s) Family History Reviewed.: Yes Medication/Allergy Home Medications: Amlodipine Besylate [Norvasc 10 mg Tablet] 10 mg PO DAILY 03/17/20 Benzonatate [Tessalon Perles 100 mg Capsule] 100 mg PO Q8HP PRN 03/17/20 Budesonide/Formoterol Fumarate [Symbicort Hfa 160-4.5 Mcg Inhaler 6 gm] 2 puff IH Q12 03/17/20 Cyclosporine 0.05% Oph Emulsio [Restasis 0.05% Oph Emulsion Pf 0.4 ml] 1 drop OU BID 03/17/20 Difluprednate [Durezol] 1 drop OS BID 03/17/20 Fenofibric Acid (Choline) [Fenofibric Acid] 135 mg PO DAILY 03/17/20 Ipratropium/Albuterol Sulfate [Combivent Respimat 4 gm Mdi] 1 puff IH QID 03/17/20 Irbesartan 300 mg PO DAILY 03/17/20 Montelukast Sodium [Singulair 10 mg Tablet] 10 mg PO QHS 03/17/20 Neomy Sulf/Polymyx B Sulf/Hc [Cortisporin Otic Susp 10 ml] 4 drop AD TID 03/17/20 Allergies/Adverse Reactions: Penicillins Allergy (Mild, Verified 05/09/14 20:36) Rash Review of Systems Constitutional: PRESENT: fatigue, weakness. ABSENT: chills, fever(s), headache(s) Eyes: ABSENT: visual disturbances Ears: ABSENT: hearing changes Nose, Mouth, and Throat: PRESENT: sore throat. ABSENT: headache(s), vertigo Cardiovascular: ABSENT: chest pain, dyspnea on exertion, edema, orthropnea, palpitations Respiratory: PRESENT: cough, dyspnea, sputum. ABSENT: hemoptysis Gastrointestinal: ABSENT: abdominal pain, constipation, diarrhea, hematemesis, hematochezia, nausea, vomiting Genitourinary: ABSENT: dysuria, hematuria Musculoskeletal: ABSENT: joint swelling Integumentary: ABSENT: rash, wounds Neurological: ABSENT: abnormal gait, abnormal speech, confusion, dizziness, focal weakness, syncope Psychiatric: ABSENT: anxiety, depression, homidical ideation, suicidal ideation Endocrine: ABSENT: cold intolerance, heat intolerance, polydipsia, polyuria Hematologic/Lymphatic: ABSENT: easy bleeding, easy bruising, lymphadenopathy Allergic/Immunologic: ABSENT: seasonal rhinorrhea Physical Exam Vital Signs: Temp Pulse Resp BP Pulse Ox 98.0 F 67 18 132/56 H 96 03/17/20 07:03 03/17/20 07:03 03/17/20 07:03 03/17/20 07:03 03/17/20 07:03 Intake & Output 03/16/20 03/17/20 03/18/20 06:59 06:59 06:59 Intake Total 197 216 Balance 197 216 Weight 90.1 kg General appearance: PRESENT: no acute distress, obese Head exam: PRESENT: atraumatic, normocephalic Eye exam: PRESENT: conjunctiva pink, EOMI, PERRLA. ABSENT: scleral icterus Ear exam: PRESENT: normal external ear exam Mouth exam: PRESENT: moist, tongue midline Neck exam: PRESENT: full ROM. ABSENT: carotid bruit, JVD, lymphadenopathy, thyromegaly Respiratory exam: PRESENT: clear to auscultation byron, decreased breath sounds - at lung bases Cardiovascular exam: PRESENT: RRR, +S1, +S2. ABSENT: diastolic murmur, rubs, systolic murmur Pulses: PRESENT: normal dorsalis pedis pul, +2 pedal pulses bilateral Vascular exam: PRESENT: normal capillary refill. ABSENT: pallor GI/Abdominal exam: PRESENT: normal bowel sounds, soft. ABSENT: distended, guarding, mass, organolmegaly, rebound, tenderness Rectal exam: PRESENT: deferred Extremities exam: ABSENT: pedal edema Neurological exam: PRESENT: alert, awake, oriented to person, oriented to place, oriented to time, oriented to situation, CN II-XII grossly intact. ABSENT: motor sensory deficit Psychiatric exam: PRESENT: appropriate affect, normal mood. ABSENT: homicidal ideation, suicidal ideation Skin exam: PRESENT: dry, intact, warm. ABSENT: cyanosis, rash Results Laboratory Results: 03/16/20 12:28 03/16/20 12:28 03/16/20 03/16/20 03/16/20 12:28 12:28 13:25 WBC 6.5 RBC 4.57 Hgb 12.7 Hct 37.3 MCV 82 MCH 27.7 MCHC 33.9 RDW 15.0 H Plt Count 432 Seg Neutrophils % 69.3 Sodium 130.5 L Potassium 4.3 Chloride 101 Carbon Dioxide 20 L Anion Gap 10 BUN 11 Creatinine 1.01 Est GFR ( Amer) > 60 Glucose 115 H Calcium 9.3 Ferritin 286.00 H Total Bilirubin 0.9 AST 55 H Alkaline Phosphatase 51 C-Reactive Protein 183.1 H Total Protein 6.8 Albumin 3.5 Urine Color YELLOW Urine Appearance CLEAR Urine pH 5.0 Ur Specific [place] 1.017 Urine Protein 30 H Urine Glucose (UA) NEGATIVE Urine Ketones NEGATIVE Urine Blood NEGATIVE Urine Nitrite NEGATIVE Ur Leukocyte Esterase TRACE H Urine WBC (Auto) 3 Urine RBC (Auto) 0 Blood Type 03/16/20 03/16/20 20:30 20:30 WBC RBC Hgb Hct MCV MCH MCHC RDW Plt Count Seg Neutrophils % Sodium Potassium Chloride Carbon Dioxide Anion Gap BUN Creatinine Est GFR ( Amer) Glucose Calcium Ferritin 292.00 H Total Bilirubin AST Alkaline Phosphatase C-Reactive Protein Total Protein Albumin Urine Color Urine Appearance Urine pH Ur Specific [place] Urine Protein Urine Glucose (UA) Urine Ketones Urine Blood Urine Nitrite Ur Leukocyte Esterase Urine WBC (Auto) Urine RBC (Auto) Blood Type O POSITIVE 03/16/20 03/16/20 03/16/20 12:28 12:28 12:28 Creatine Kinase 47 Troponin I < 0.012 NT-Pro-B Natriuret Pep 418 03/16/20 20:30 Creatine Kinase Troponin I < 0.012 NT-Pro-B Natriuret Pep Impressions: Chest X-Ray 03/16/20 12:23 IMPRESSION: 1. Findings suggest early CHF exacerbation. Superimposed infection not excluded. 2. Large hiatal hernia better characterized on comparison radiographs. Chest/Abdomen CTA 03/16/20 16:52 IMPRESSION: No CT angio evidence of acute pulmonary emboli. Patchy bilateral peripheral alveolar and interstitial infiltrates. 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, omental fat, and a portion of the midbody pancreas Assessment & Plan - Diagnosis (1) Pneumonia due to 2019-nCoV Is this a current diagnosis for this admission?: Yes Plan: See admitting attending physician orders for details about care plan. (2) Hypoxemia Is this a current diagnosis for this admission?: Yes Plan: See admitting attending physician orders for details about care plan. (3) HTN (hypertension) Qualifiers: Hypertension type: essential hypertension Qualified Code(s): I10 - Essential (primary) hypertension Is this a current diagnosis for this admission?: Yes Plan: See admitting attending physician orders for details about care plan. (4) HLD (hyperlipidemia) Qualifiers: Hyperlipidemia type: unspecified Qualified Code(s): E78.5 - Hyperlipidemia, unspecified Is this a current diagnosis for this admission?: Yes Plan: See admitting attending physician orders for details about care plan. (5) COPD (chronic obstructive pulmonary disease) Qualifiers: Emphysema type: unspecified Is this a current diagnosis for this admission?: Yes Plan: See admitting attending physician orders for details about care plan. (6) Hiatal hernia with GERD Is this a current diagnosis for this admission?: Yes Plan: See admitting attending physician orders for details about care plan. (7) Glaucoma Qualifiers: Primary angle closure glaucoma type: chronic Laterality: unspecified laterality Glaucoma stage: stage unspecified Is this a current diagnosis for this admission?: Yes Plan: See admitting attending physician orders for details about care plan. (8) Osteoarthritis involving multiple joints on both sides of body Is this a current diagnosis for this admission?: Yes Plan: See admitting attending physician orders for details about care plan. - Time Time Spent: 50 to 70 Minutes Medications reviewed and adjusted accordingly: Yes Anticipated Discharge Disposition: Home with Home Health Anticipated Discharge Timeframe: within 72 hours - Inpatient Certification Based on my medical assessment, after consideration of the patient's comorbidities, presenting symptoms, or acuity I expect that the services needed warrant INPATIENT care.: Yes I certify that my determination is in accordance with my understanding of Medicare's requirements for reasonable and necessary INPATIENT services [42 CFR 412.3e].: Yes Medical Necessity: Significant Comorbidiites Make Outpatient Treatment Too Risky, Need Close Monitoring Due to Risk of Patient Decompensation, Need For IV Fluids, Need For Continuous Telemetry Monitoring, Need for IV Antibiotics, Risk of Complication if Not Cared For in Hospital Post Hospital Care: D/C Optometric Coordinator Documentation - Plan Summary Plan Summary: See admitting attending physician orders for details about care plan.
[2020-03-17] MEDS: ENOXAPARIN SODIUM INJ 40 MG/0.4 ML DISP.SYRIN SUBCUT SCH (22:22)
[2020-03-17] MEDS ORDERED: BENZONATATE 100 MG CAPSULE PO PRN (23:02)
[2020-03-17] MEDS ORDERED: ACETAMINOPHEN 325 MG TABLET PO PRN (23:05)
[2020-03-18 05:14] LABS: ABSOLUTE LYMPHOCYTES (AUTO) 0.8 10^3/uL (0.5-4.7); ABSOLUTE MONOCYTES (AUTO) 0.7 10^3/uL (0.1-1.4); ABSOLUTE NEUT (AUTO) 5.1 10^3/uL (1.7-8.2); BASOPHILS % (AUTO) 0.7 % (0-2); HEMATOCRIT 35.5 % (36.0-47.0); HEMOGLOBIN 11.8 g/dL (12.0-15.5); LYMPHOCYTES % (AUTO) 12.2 % (13-45); MEAN CORPUSCULAR HEMOGLOBIN 27.3 pg (27.0-33.4); MEAN CORPUSCULAR HGB CONC 33.4 g/dL (32.0-36.0); MEAN CORPUSCULAR VOLUME 82 fl (80-97); MONOCYTES % (AUTO) 9.9 % (3-13); PLATELET COUNT 459 10^3/uL (150-450); RED BLOOD COUNT 4.33 10^6/uL (3.72-5.28); RED CELL DISTRIBUTION WIDTH 15.1 % (11.5-14.0); SEGMENTED NEUTROPHILS % (AUTO) 77.2 % (42-78); TOTAL CELLS COUNTED % (AUTO) 100 %; WHITE BLOOD COUNT 6.6 10^3/uL (4.0-10.5)
[2020-03-18] MEDS: PANTOPRAZOLE SODIUM 20 MG TABLET.DR PO SCH (05:36)
[2020-03-18 05:39] LABS: ALKALINE PHOSPHATASE 49 U/L (38-126); ANION GAP 8 (5-19); ASPARTATE AMINO TRANSFERASE 78 U/L (14-36); BILIRUBIN,DIRECT 0.5 mg/dL (0.0-0.4); BILIRUBIN,TOTAL 0.6 mg/dL (0.2-1.3); BLOOD UREA NITROGEN 22 mg/dL (7-20); C-REACTIVE PROTEIN 72.5 mg/L (<10.0); CALCIUM 9.3 mg/dL (8.4-10.2); CARBON DIOXIDE 22 mmol/L (22-30); CHLORIDE 104 mmol/L (98-107); CREATINE KINASE 40 U/L (30-135); GLUCOSE 133 mg/dL (75-110); POTASSIUM 4.6 mmol/L (3.6-5.0); TOTAL PROTEIN 6.3 g/dL (6.3-8.2)
[2020-03-18] MEDS: RINGERS SOLUTION,LACTATED 1,000 ML IV PRN ×2 (08:00→21:48)
[2020-03-18] MEDS: ASPIRIN 325 MG TABLET PO SCH (08:32)
[2020-03-18] MEDS ORDERED: [UNRECOGNIZED DRUG - OTHER] IH SCH (10:00)
[2020-03-18] MEDS ORDERED: DIFLUPREDNATE OS SCH (10:00)
[2020-03-18] MEDS ORDERED: IPRATROPIUM IH SCH (10:00)
[2020-03-18] MEDS ORDERED: ALBUTEROL IH SCH (10:00)
[2020-03-18] MEDS: LOSARTAN POTASSIUM 50 MG TABLET PO SCH (10:46)
[2020-03-18] MEDS: REMDESIVIR 100 MG in NORMAL SALINE 250 ML IV SCH (10:47)
[2020-03-18] MEDS: DEXAMETHASONE SOD PHOS INJ 10 MG/1 ML VIAL IV SCH (10:47)
[2020-03-18] MEDS: CHOLECALCIFEROL (D3) 1,000 UNIT (25 MCG) TABLET PO SCH (10:47)
[2020-03-18] MEDS: ZINC SULFATE 220 MG CAPSULE PO SCH (10:47)
[2020-03-18] MEDS: AMLODIPINE BESYLATE 10 MG TABLET PO SCH (10:47)
[2020-03-18] MEDS: ASCORBIC ACID 500 MG TABLET PO SCH ×2 (10:47→17:42)
[2020-03-18] MEDS: CYCLOSPORINE 0.05% OPH EMULSIO 0.4 ML DROPERETTE OU SCH ×2 (10:48→17:42)
--- NOTE | 2020-03-18 12:36 | EKG REPORT ---
SEVERITY:- BORDERLINE ECG - SINUS RHYTHM : Confirmed by: Nilo Melendez MD 18-Mar-2020 12:36:16
[2020-03-18] MEDS: AZITHROMYCIN 250 MG TABLET PO SCH (17:42)
--- NOTE | 2020-03-18 18:33 | PDOC PROGRESS REPORT ---
Subjective Date:: 03/18/20 Subjective:: No chest pain or difficult with breathing. She remain on supplemental oxygen via nasal cannula at 2L/min. No fever or chills. No nausea, vomiting, abdominal pain, loss of taste or smell. Ambulate in her room without significant assistance or oxygen desaturation. Reason For Visit: COVID PNEUMONIA Physical Exam Vital Signs: Temp Pulse Resp BP Pulse Ox 98.6 F 78 20 158/61 H 96 03/18/20 15:48 03/18/20 15:48 03/18/20 15:48 03/18/20 15:48 03/18/20 15:48 Intake & Output 03/17/20 03/18/20 03/19/20 06:59 06:59 06:59 Intake Total 197 2064 1250 Balance 197 2064 1250 Weight 90.1 kg 91.5 kg General appearance: PRESENT: no acute distress, obese Head exam: PRESENT: atraumatic, normocephalic Eye exam: PRESENT: conjunctiva pink, EOMI, PERRLA. ABSENT: scleral icterus Ear exam: PRESENT: normal external ear exam Mouth exam: PRESENT: moist, tongue midline Neck exam: PRESENT: full ROM. ABSENT: carotid bruit, JVD, lymphadenopathy, thyromegaly Respiratory exam: PRESENT: clear to auscultation byron Cardiovascular exam: PRESENT: RRR, +S1, +S2. ABSENT: diastolic murmur, rubs, systolic murmur Vascular exam: ABSENT: pallor GI/Abdominal exam: PRESENT: normal bowel sounds, soft. ABSENT: tenderness Extremities exam: ABSENT: pedal edema Neurological exam: PRESENT: alert, awake, oriented to person, oriented to place, oriented to time, oriented to situation, CN II-XII grossly intact. ABSENT: motor sensory deficit Psychiatric exam: PRESENT: appropriate affect, normal mood. ABSENT: homicidal ideation, suicidal ideation Skin exam: PRESENT: dry, intact, warm. ABSENT: cyanosis, rash Results Laboratory Results: 03/18/20 04:38 03/18/20 04:38 03/18/20 03/18/20 04:38 04:38 WBC 6.6 RBC 4.33 Hgb 11.8 L Hct 35.5 L MCV 82 MCH 27.3 MCHC 33.4 RDW 15.1 H Plt Count 459 H Seg Neutrophils % 77.2 Sodium 134.4 L Potassium 4.6 Chloride 104 Carbon Dioxide 22 Anion Gap 8 BUN 22 H Creatinine 1.03 Est GFR ( Amer) > 60 Glucose 133 H Calcium 9.3 Total Bilirubin 0.6 AST 78 H Alkaline Phosphatase 49 C-Reactive Protein 72.5 H Total Protein 6.3 Albumin 3.0 L 03/16/20 03/16/20 03/16/20 12:28 12:28 12:28 Creatine Kinase 47 Troponin I < 0.012 NT-Pro-B Natriuret Pep 418 03/16/20 03/17/20 03/18/20 20:30 09:50 04:38 Creatine Kinase 42 40 Troponin I < 0.012 NT-Pro-B Natriuret Pep Impressions: Chest X-Ray 03/16/20 12:23 IMPRESSION: 1. Findings suggest early CHF exacerbation. Superimposed infection not excluded. 2. Large hiatal hernia better characterized on comparison radiographs. Chest/Abdomen CTA 03/16/20 16:52 IMPRESSION: No CT angio evidence of acute pulmonary emboli. Patchy bilateral peripheral alveolar and interstitial infiltrates. 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, omental fat, and a portion of the midbody pancreas Assessment & Plan - Diagnosis (1) Pneumonia due to 2019-nCoV Is this a current diagnosis for this admission?: Yes (2) Hypoxemia Is this a current diagnosis for this admission?: Yes (3) HTN (hypertension) Qualifiers: Hypertension type: essential hypertension Qualified Code(s): I10 - Essential (primary) hypertension Is this a current diagnosis for this admission?: Yes (4) HLD (hyperlipidemia) Qualifiers: Hyperlipidemia type: unspecified Qualified Code(s): E78.5 - Hyperlipidemia, unspecified Is this a current diagnosis for this admission?: Yes (5) COPD (chronic obstructive pulmonary disease) Qualifiers: Emphysema type: unspecified Is this a current diagnosis for this admission?: Yes (6) Hiatal hernia with GERD Is this a current diagnosis for this admission?: Yes (7) Glaucoma Qualifiers: Primary angle closure glaucoma type: chronic Laterality: unspecified laterality Glaucoma stage: stage unspecified Is this a current diagnosis for this admission?: Yes (8) Osteoarthritis involving multiple joints on both sides of body Is this a current diagnosis for this admission?: Yes - Time Time Spent with patient: 25-34 minutes Level of Care: IMCU Medications reviewed and adjusted accordingly: Yes Anticipated discharge: Home with Homehealth Anticipated DC Timeframe: within 72 hours - Inpatient Certification Based on my medical assessment, after consideration of the patient's comorbidities, presenting symptoms, or acuity I expect that the services needed warrant INPATIENT care.: Yes I certify that my determination is in accordance with my understanding of [employer] 's requirements for reasonable and necessary INPATIENT services [42 CFR 412.3e].: Yes Medical Necessity: Significant Comorbidiites Make Outpatient Treatment Too Risky, Need Close Monitoring Due to Risk of Patient Decompensation, Need For IV Fluids, Need For Continuous Telemetry Monitoring, Need for IV Antibiotics, Risk of Complication if Not Cared For in Hospital, Risk of Diagnosis Which Will Require Inpatient Eval/Care/Monitoring Post Hospital Care: D/C Data Support Analyst Documentation - Plan Summary Plan Summary: Continue al current medication management. She is due for second dose of Ivermectin tomorrow.
[2020-03-18] MEDS: MONTELUKAST SODIUM 10 MG TABLET PO SCH (21:45)
[2020-03-18] MEDS: ENOXAPARIN SODIUM INJ 40 MG/0.4 ML DISP.SYRIN SUBCUT SCH (21:45)
[2020-03-19] MEDS: PANTOPRAZOLE SODIUM 20 MG TABLET.DR PO SCH (05:07)
[2020-03-19 05:41] LABS: ABSOLUTE LYMPHOCYTES (AUTO) 0.8 10^3/uL (0.5-4.7); ABSOLUTE MONOCYTES (AUTO) 0.7 10^3/uL (0.1-1.4); BASOPHILS % (AUTO) 0.4 % (0-2); HEMATOCRIT 33.1 % (36.0-47.0); HEMOGLOBIN 11.2 g/dL (12.0-15.5); LYMPHOCYTES % (AUTO) 10.7 % (13-45); MEAN CORPUSCULAR HEMOGLOBIN 27.9 pg (27.0-33.4); MEAN CORPUSCULAR VOLUME 82 fl (80-97); MONOCYTES % (AUTO) 9.2 % (3-13); PLATELET COUNT 512 10^3/uL (150-450); RED BLOOD COUNT 4.03 10^6/uL (3.72-5.28); RED CELL DISTRIBUTION WIDTH 15.1 % (11.5-14.0); SEGMENTED NEUTROPHILS % (AUTO) 79.7 % (42-78); TOTAL CELLS COUNTED % (AUTO) 100 %; WHITE BLOOD COUNT 7.5 10^3/uL (4.0-10.5)
[2020-03-19 05:47] LABS: ALBUMIN 2.8 g/dL (3.5-5.0); ALKALINE PHOSPHATASE 47 U/L (38-126); ASPARTATE AMINO TRANSFERASE 52 U/L (14-36); BILIRUBIN,DIRECT 0.4 mg/dL (0.0-0.4); BILIRUBIN,TOTAL 0.5 mg/dL (0.2-1.3); BLOOD UREA NITROGEN 23 mg/dL (7-20); C-REACTIVE PROTEIN 42.5 mg/L (<10.0); CALCIUM 9.1 mg/dL (8.4-10.2); CREATINE KINASE 29 U/L (30-135); GLUCOSE 126 mg/dL (75-110); POTASSIUM 5.2 mmol/L (3.6-5.0); TOTAL PROTEIN 5.9 g/dL (6.3-8.2)
[2020-03-19 05:50] LABS: CARBON DIOXIDE 26 mmol/L (22-30); CHLORIDE 104 mmol/L (98-107)
[2020-03-19 06:47] LABS: ANION GAP 4 (5-19)
[2020-03-19] MEDS: ASPIRIN 325 MG TABLET PO SCH (08:57)
[2020-03-19] MEDS: AMLODIPINE BESYLATE 10 MG TABLET PO SCH (11:40)
[2020-03-19] MEDS: CHOLECALCIFEROL (D3) 1,000 UNIT (25 MCG) TABLET PO SCH (11:41)
[2020-03-19] MEDS: ASCORBIC ACID 500 MG TABLET PO SCH ×2 (11:41→18:46)
[2020-03-19] MEDS: LOSARTAN POTASSIUM 50 MG TABLET PO SCH (11:41)
[2020-03-19] MEDS: ZINC SULFATE 220 MG CAPSULE PO SCH (11:41)
[2020-03-19] MEDS: DEXAMETHASONE SOD PHOS INJ 10 MG/1 ML VIAL IV SCH (11:41)
[2020-03-19] MEDS: CYCLOSPORINE 0.05% OPH EMULSIO 0.4 ML DROPERETTE OU SCH ×2 (11:42→18:46)
[2020-03-19] MEDS: REMDESIVIR 100 MG in NORMAL SALINE 250 ML IV SCH (11:42)
[2020-03-19] MEDS: AZITHROMYCIN 250 MG TABLET PO SCH (18:45)
[2020-03-19] MEDS ORDERED: IVERMECTIN 3 MG TABLET PO ONE (22:00)
[2020-03-19] MEDS: MONTELUKAST SODIUM 10 MG TABLET PO SCH (22:10)
[2020-03-19] MEDS: ENOXAPARIN SODIUM INJ 40 MG/0.4 ML DISP.SYRIN SUBCUT SCH (22:10)
--- NOTE | 2020-03-19 22:28 | PDOC PROGRESS REPORT ---
Subjective Date:: 03/19/20 Subjective:: Patient reported improvement in her breathing but nursing staff reported adheren ce to supplemental oxygen usage despite satisfactory saturation on room air. No chest pain or palpitation. No fever or chills. No nausea, vomiting, abdominal pain, loss of taste or smell. Reason For Visit: COVID PNEUMONIA Physical Exam Vital Signs: Temp Pulse Resp BP Pulse Ox 97.5 F 61 20 158/56 H 98 03/19/20 12:36 03/19/20 14:00 03/19/20 12:36 03/19/20 12:36 03/19/20 12:36 Intake & Output 03/18/20 03/19/20 03/20/20 06:59 06:59 06:59 Intake Total 2063 2876 250 Balance 2063 2876 250 Weight 91.5 kg 92.5 kg Physical Exam: General appearance: PRESENT: no acute distress, obese Head exam: PRESENT: atraumatic, normocephalic Eye exam: PRESENT: conjunctiva pink. ABSENT: pallor, scleral icterus Respiratory exam: PRESENT: clear to auscultation byron Cardiovascular exam: PRESENT: RRR, +S1, +S2. ABSENT: diastolic murmur, rubs, systolic murmur GI/Abdominal exam: PRESENT: normal bowel sounds, soft. ABSENT: tenderness Extremities exam: ABSENT: pedal edema Neurological exam: PRESENT: alert, awake, oriented to person, oriented to place, oriented to time, oriented to situation. Psychiatric exam: PRESENT: appropriate affect, normal mood. Skin exam: PRESENT: dry, intact, warm. Results Laboratory Results: 03/19/20 04:33 03/19/20 04:33 03/19/20 03/19/20 04:33 04:33 WBC 7.5 RBC 4.03 Hgb 11.2 L Hct 33.1 L MCV 82 MCH 27.9 MCHC 34.0 RDW 15.1 H Plt Count 512 H Seg Neutrophils % 79.7 H Sodium 134.0 L Potassium 5.2 H Chloride 104 Carbon Dioxide 26 Anion Gap 4 L BUN 23 H Creatinine 1.07 Est GFR ( Amer) 59 L Glucose 126 H Calcium 9.1 Total Bilirubin 0.5 AST 52 H Alkaline Phosphatase 47 C-Reactive Protein 42.5 H Total Protein 5.9 L Albumin 2.8 L 03/16/20 03/16/20 03/16/20 12:28 12:28 12:28 Creatine Kinase 47 Troponin I < 0.012 NT-Pro-B Natriuret Pep 418 03/16/20 03/17/20 03/18/20 20:30 09:50 04:38 Creatine Kinase 42 40 Troponin I < 0.012 NT-Pro-B Natriuret Pep 03/19/20 04:33 Creatine Kinase 29 L Troponin I NT-Pro-B Natriuret Pep Impressions: Chest X-Ray 03/16/20 12:23 IMPRESSION: 1. Findings suggest early CHF exacerbation. Superimposed infection not excluded. 2. Large hiatal hernia better characterized on comparison radiographs. Chest/Abdomen CTA 03/16/20 16:52 IMPRESSION: No CT angio evidence of acute pulmonary emboli. Patchy bilateral peripheral alveolar and interstitial infiltrates. 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, omental fat, and a portion of the midbody pancreas Assessment & Plan - Diagnosis (1) Pneumonia due to 2019-nCoV Is this a current diagnosis for this admission?: Yes (2) Hypoxemia Is this a current diagnosis for this admission?: Yes (3) HTN (hypertension) Qualifiers: Hypertension type: essential hypertension Qualified Code(s): I10 - Essential (primary) hypertension Is this a current diagnosis for this admission?: Yes (4) HLD (hyperlipidemia) Qualifiers: Hyperlipidemia type: unspecified Qualified Code(s): E78.5 - Hyperlipidemia, unspecified Is this a current diagnosis for this admission?: Yes (5) COPD (chronic obstructive pulmonary disease) Qualifiers: Emphysema type: unspecified Is this a current diagnosis for this admission?: Yes (6) Hiatal hernia with GERD Is this a current diagnosis for this admission?: Yes (7) Glaucoma Qualifiers: Primary angle closure glaucoma type: chronic Laterality: unspecified laterality Glaucoma stage: stage unspecified Is this a current diagnosis for this admission?: Yes (8) Osteoarthritis involving multiple joints on both sides of body Is this a current diagnosis for this admission?: Yes - Time Time Spent with patient: 25-34 minutes Level of Care: IMCU Medications reviewed and adjusted accordingly: Yes Anticipated discharge: Home with Homehealth Anticipated DC Timeframe: within 72 hours - Inpatient Certification Based on my medical assessment, after consideration of the patient's comorbidities, presenting symptoms, or acuity I expect that the services needed warrant INPATIENT care.: Yes I certify that my determination is in accordance with my understanding of Medicare's requirements for reasonable and necessary INPATIENT services [42 CFR 412.3e].: Yes Medical Necessity: Significant Comorbidiites Make Outpatient Treatment Too Risky, Need Close Monitoring Due to Risk of Patient Decompensation, Need For IV Fluids, Need For Continuous Telemetry Monitoring, Risk of Complication if Not Cared For in Hospital, Risk of Diagnosis Which Will Require Inpatient Eval/Care/Monitoring Post Hospital Care: D/C Erp Project Manager Documentation - Plan Summary Plan Summary: Administer second dose of Ivermectin 12 mg po x 1 dose. Obtain coagulation profile with D-Dimer and Fibrinogen level. Continue all other current medication management. Prognosis is fair with downward trend in inflammatory indices.
[2020-03-20] MEDS: RINGERS SOLUTION,LACTATED 1,000 ML IV PRN ×2 (05:23→17:18)
[2020-03-20] MEDS: PANTOPRAZOLE SODIUM 20 MG TABLET.DR PO SCH (05:23)
[2020-03-20 05:40] LABS: ABSOLUTE LYMPHOCYTES (AUTO) 0.9 10^3/uL (0.5-4.7); ABSOLUTE MONOCYTES (AUTO) 0.6 10^3/uL (0.1-1.4); ABSOLUTE NEUT (AUTO) 5.3 10^3/uL (1.7-8.2); BASOPHILS % (AUTO) 0.5 % (0-2); HEMATOCRIT 36.9 % (36.0-47.0); HEMOGLOBIN 12.3 g/dL (12.0-15.5); LYMPHOCYTES % (AUTO) 13.1 % (13-45); MEAN CORPUSCULAR HEMOGLOBIN 27.4 pg (27.0-33.4); MEAN CORPUSCULAR HGB CONC 33.5 g/dL (32.0-36.0); MEAN CORPUSCULAR VOLUME 82 fl (80-97); MONOCYTES % (AUTO) 9.4 % (3-13); PLATELET COUNT 535 10^3/uL (150-450); RED CELL DISTRIBUTION WIDTH 15.3 % (11.5-14.0); TOTAL CELLS COUNTED % (AUTO) 100 %; WHITE BLOOD COUNT 6.9 10^3/uL (4.0-10.5)
[2020-03-20 05:47] LABS: FIBRINOGEN 386 mg/dL (209-497); INTERNATIONAL RATION (INR) 1.25; PROTHROMBIN TIME 15.9 SEC (11.4-15.4)
[2020-03-20 05:48] LABS: PARTIAL THROMBOPLASTIN TIME 37.9 SEC (23.5-35.8)
[2020-03-20 05:50] LABS: D-DIMER 0.56 ug/mL (0.00-0.50)
[2020-03-20 05:58] LABS: ALBUMIN 2.9 g/dL (3.5-5.0); ALKALINE PHOSPHATASE 54 U/L (38-126); ANION GAP 5 (5-19); ASPARTATE AMINO TRANSFERASE 76 U/L (14-36); BILIRUBIN,DIRECT 0.4 mg/dL (0.0-0.4); BILIRUBIN,TOTAL 0.6 mg/dL (0.2-1.3); BLOOD UREA NITROGEN 23 mg/dL (7-20); C-REACTIVE PROTEIN 31.2 mg/L (<10.0); CALCIUM 9.4 mg/dL (8.4-10.2); CARBON DIOXIDE 26 mmol/L (22-30); CHLORIDE 103 mmol/L (98-107); CREATINE KINASE 26 U/L (30-135); GLUCOSE 119 mg/dL (75-110); POTASSIUM 4.8 mmol/L (3.6-5.0); TOTAL PROTEIN 6.2 g/dL (6.3-8.2)
[2020-03-20] MEDS: ASPIRIN 325 MG TABLET PO SCH (08:30)
[2020-03-20] MEDS: AMLODIPINE BESYLATE 10 MG TABLET PO SCH (11:04)
[2020-03-20] MEDS: LOSARTAN POTASSIUM 50 MG TABLET PO SCH (11:04)
[2020-03-20] MEDS: ASCORBIC ACID 500 MG TABLET PO SCH ×2 (11:04→17:14)
[2020-03-20] MEDS: CHOLECALCIFEROL (D3) 1,000 UNIT (25 MCG) TABLET PO SCH (11:04)
[2020-03-20] MEDS: ZINC SULFATE 220 MG CAPSULE PO SCH (11:04)
[2020-03-20] MEDS: REMDESIVIR 100 MG in NORMAL SALINE 250 ML IV SCH (11:05)
[2020-03-20] MEDS: DEXAMETHASONE SOD PHOS INJ 10 MG/1 ML VIAL IV SCH (11:05)
[2020-03-20] MEDS: CYCLOSPORINE 0.05% OPH EMULSIO 0.4 ML DROPERETTE OU SCH ×2 (11:05→17:14)
[2020-03-20] MEDS: AZITHROMYCIN 250 MG TABLET PO SCH (17:14)
--- NOTE | 2020-03-20 20:18 | PDOC PROGRESS REPORT ---
Subjective Date:: 03/20/20 Subjective:: Patient continue to improve clinical but cliched to use of supplemental oxygen. No chest pain or palpitation. No fever or chills. No nausea, vomiting, abdominal pain, loss of taste or smell. Reason For Visit: COVID PNEUMONIA Physical Exam Vital Signs: Temp Pulse Resp BP Pulse Ox 98.5 F 69 20 142/66 H 97 03/20/20 17:10 03/20/20 19:00 03/20/20 03:36 03/20/20 17:10 03/20/20 17:10 Intake & Output 03/19/20 03/20/20 03/21/20 06:59 06:59 06:59 Intake Total 2875 2046 1863 Balance 2875 2046 1863 Weight 92.5 kg 92.4 kg Physical Exam: General appearance: PRESENT: no acute distress, obese Head exam: PRESENT: atraumatic, normocephalic Eye exam: PRESENT: conjunctiva pink. ABSENT: pallor, sclera icterus Respiratory exam: PRESENT: clear to auscultation byron Cardiovascular exam: PRESENT: RRR, +S1, +S2. ABSENT: diastolic murmur, rubs, systolic murmur GI/Abdominal exam: PRESENT: normal bowel sounds, soft. ABSENT: tenderness Extremities exam: ABSENT: pedal edema Neurological exam: PRESENT: alert, awake, oriented to person, oriented to place, oriented to time, oriented to situation. Psychiatric exam: PRESENT: appropriate affect, normal mood. Skin exam: PRESENT: dry, intact, warm. Results Laboratory Results: 03/20/20 04:43 03/20/20 04:43 03/20/20 03/20/20 04:43 04:43 WBC 6.9 RBC 4.50 Hgb 12.3 Hct 36.9 MCV 82 MCH 27.4 MCHC 33.5 RDW 15.3 H Plt Count 535 H Seg Neutrophils % 77.0 Sodium 134.4 L Potassium 4.8 Chloride 103 Carbon Dioxide 26 Anion Gap 5 BUN 23 H Creatinine 0.99 Est GFR ( Amer) > 60 Glucose 119 H Calcium 9.4 Total Bilirubin 0.6 AST 76 H Alkaline Phosphatase 54 C-Reactive Protein 31.2 H Total Protein 6.2 L Albumin 2.9 L 03/16/20 03/16/20 03/16/20 12:28 12:28 12:28 Creatine Kinase 47 Troponin I < 0.012 NT-Pro-B Natriuret Pep 418 03/16/20 03/17/20 03/18/20 20:30 09:50 04:38 Creatine Kinase 42 40 Troponin I < 0.012 NT-Pro-B Natriuret Pep 03/19/20 03/20/20 04:33 04:43 Creatine Kinase 29 L 26 L Troponin I NT-Pro-B Natriuret Pep Impressions: Chest X-Ray 03/16/20 12:23 IMPRESSION: 1. Findings suggest early CHF exacerbation. Superimposed infection not excluded. 2. Large hiatal hernia better characterized on comparison radiographs. Chest/Abdomen CTA 03/16/20 16:52 IMPRESSION: No CT angio evidence of acute pulmonary emboli. Patchy bilateral peripheral alveolar and interstitial infiltrates. 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, omental fat, and a portion of the midbody pancreas Assessment & Plan - Diagnosis (1) Pneumonia due to 2019-nCoV Is this a current diagnosis for this admission?: Yes (2) Hypoxemia Is this a current diagnosis for this admission?: Yes (3) HTN (hypertension) Qualifiers: Hypertension type: essential hypertension Qualified Code(s): I10 - Essential (primary) hypertension Is this a current diagnosis for this admission?: Yes (4) HLD (hyperlipidemia) Qualifiers: Hyperlipidemia type: unspecified Qualified Code(s): E78.5 - Hyperlipidemia, unspecified Is this a current diagnosis for this admission?: Yes (5) COPD (chronic obstructive pulmonary disease) Qualifiers: Emphysema type: unspecified Is this a current diagnosis for this admission?: Yes (6) Hiatal hernia with GERD Is this a current diagnosis for this admission?: Yes (7) Glaucoma Qualifiers: Primary angle closure glaucoma type: chronic Laterality: unspecified l aterality Glaucoma stage: stage unspecified Is this a current diagnosis for this admission?: Yes (8) Osteoarthritis involving multiple joints on both sides of body Is this a current diagnosis for this admission?: Yes - Time Time Spent with patient: 25-34 minutes Level of Care: IMCU Medications reviewed and adjusted accordingly: Yes Anticipated discharge: Home with Homehealth Anticipated DC Timeframe: within 72 hours - Inpatient Certification Based on my medical assessment, after consideration of the patient's comorbidities, presenting symptoms, or acuity I expect that the services needed warrant INPATIENT care.: Yes I certify that my determination is in accordance with my understanding of Medicare's requirements for reasonable and necessary INPATIENT services [42 CFR 412.3e].: Yes Medical Necessity: Significant Comorbidiites Make Outpatient Treatment Too Risky, Need Close Monitoring Due to Risk of Patient Decompensation, Need For IV Fluids, Need For Continuous Telemetry Monitoring, Risk of Complication if Not Cared For in Hospital, Risk of Diagnosis Which Will Require Inpatient Eval/Care/Monitoring 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 Start on trial of off supplemental oxygen. She is due for her last dose of Remdesivir tomorrow morning, if her clinical status continue to improve, I discussed possible discharge home tomorrow.
[2020-03-20] MEDS: ENOXAPARIN SODIUM INJ 40 MG/0.4 ML DISP.SYRIN SUBCUT SCH (21:17)
[2020-03-20] MEDS: MONTELUKAST SODIUM 10 MG TABLET PO SCH (21:18)
[2020-03-21 05:10] LABS: HEMATOCRIT 37.1 % (36.0-47.0); HEMOGLOBIN 12.7 g/dL (12.0-15.5); MEAN CORPUSCULAR HEMOGLOBIN 27.6 pg (27.0-33.4); MEAN CORPUSCULAR HGB CONC 34.1 g/dL (32.0-36.0); MEAN CORPUSCULAR VOLUME 81 fl (80-97); PLATELET COUNT 596 10^3/uL (150-450); RED BLOOD COUNT 4.58 10^6/uL (3.72-5.28); WHITE BLOOD COUNT 7.4 10^3/uL (4.0-10.5)
[2020-03-21 05:30] LABS: ALBUMIN 2.9 g/dL (3.5-5.0); ALKALINE PHOSPHATASE 55 U/L (38-126); ANION GAP 5 (5-19); ASPARTATE AMINO TRANSFERASE 69 U/L (14-36); BILIRUBIN,DIRECT 0.4 mg/dL (0.0-0.4); BILIRUBIN,TOTAL 0.6 mg/dL (0.2-1.3); BLOOD UREA NITROGEN 25 mg/dL (7-20); C-REACTIVE PROTEIN 22.6 mg/L (<10.0); CALCIUM 9.3 mg/dL (8.4-10.2); CARBON DIOXIDE 27 mmol/L (22-30); CHLORIDE 103 mmol/L (98-107); CREATINE KINASE 20 U/L (30-135); GLUCOSE 114 mg/dL (75-110); POTASSIUM 4.7 mmol/L (3.6-5.0); TOTAL PROTEIN 6.2 g/dL (6.3-8.2)
[2020-03-21 05:31] LABS: ABSOLUTE LYMPHOCYTES# (MANUAL) 1.1 10^3/uL (0.5-4.7); ABSOLUTE MONOCYTES # (MANUAL) 0.6 10^3/uL (0.1-1.4); BASOPHILS % (MANUAL) 0 % (0-2); EOSINOPHILS % (MANUAL) 0 % (0-6); LYMPHOCYTES % (MANUAL) 15 % (13-45); MONOCYTES % (MANUAL) 8 % (3-13); SEGMENTED NEUTROPHILS % (MAN) 77 % (42-78); TOTAL CELLS COUNTED 100
[2020-03-21 05:32] LABS: ANISOCYTOSIS SLIGHT; PLATELET COMMENT INCREASED
[2020-03-21] MEDS: PANTOPRAZOLE SODIUM 20 MG TABLET.DR PO SCH (05:36)
[2020-03-21] MEDS: CHOLECALCIFEROL (D3) 1,000 UNIT (25 MCG) TABLET PO SCH (09:57)
[2020-03-21] MEDS: ZINC SULFATE 220 MG CAPSULE PO SCH (09:57)
[2020-03-21] MEDS: AMLODIPINE BESYLATE 10 MG TABLET PO SCH (09:57)
[2020-03-21] MEDS: ASPIRIN 325 MG TABLET PO SCH (09:57)
[2020-03-21] MEDS: ASCORBIC ACID 500 MG TABLET PO SCH (09:57)
[2020-03-21] MEDS: LOSARTAN POTASSIUM 50 MG TABLET PO SCH (09:57)
[2020-03-21] MEDS: CYCLOSPORINE 0.05% OPH EMULSIO 0.4 ML DROPERETTE OU SCH (09:58)
[2020-03-21] MEDS: REMDESIVIR 100 MG in NORMAL SALINE 250 ML IV SCH (09:58)
[2020-03-21] MEDS: DEXAMETHASONE SOD PHOS INJ 10 MG/1 ML VIAL IV SCH (09:58)
[2020-03-21 14:08] VITALS: BP 145/53
--- NOTE | 2020-03-21 17:17 | PDOC DISCHARGE SUMMARY ---
Impression - Admit/DC Date/PCP Admission Date/Primary Care Provider: 03/16/20 18:21 LB HERRERA Discharge Date: 03/21/20 - Discharge Diagnosis (1) Pneumonia due to 2019-nCoV Is this a current diagnosis for this admission?: Yes (2) Hypoxemia Is this a current diagnosis for this admission?: Yes (3) HTN (hypertension) Is this a current diagnosis for this admission?: Yes (4) HLD (hyperlipidemia) Is this a current diagnosis for this admission?: Yes (5) COPD (chronic obstructive pulmonary disease) Is this a current diagnosis for this admission?: Yes (6) Hiatal hernia with GERD Is this a current diagnosis for this admission?: Yes (7) Glaucoma Is this a current diagnosis for this admission?: Yes (8) Osteoarthritis involving multiple joints on both sides of body Is this a current diagnosis for this admission?: Yes - Assessment Summary: Patient was admitted for respiratory distress with hypoxemia suggestive of COVID pneumonia infection. Her CoVID test was reported positive. She was managed accordingly with [facility] protocol and Ivermectin. Her inflammatory indices are on downward trend. She has afebrile for more than 48 hours and off supplemental oxygen since last clinical evaluation. She will be discharged home on Ivermectin 12 mg po qweekly, Dexamethazsone 6 mg po daily x 5 days to complete 10 days therapy. She will remain on Zinc, Vit C, Vit D, and B Complex supplementation. She will continue all her preadmission medication management. She was instructed to continue social distancing, frequent hand washing, and isolation. She will follow up in the office as instructed upon discharge. - Additional Information Resuscitation Status: Full Code Referrals: LB HERRERA MD [Primary Care Provider] - 03/26/20 10:00 am (Arrange Telehealth for post COVID pneumonia discharge follow up) Prescriptions: Aspirin [Aspirin 325 mg Tablet] 325 mg PO QAM #30 tablet Dexamethasone [Decadron] 6 mg PO DAILY 5 Days #5 tablet Pantoprazole Sodium [Protonix [address] Tablet] 20 mg PO Q6AM #30 tablet.dr Ivermectin [Stromectol 3 mg Tablet] 12 mg PO ASDIR PRN 30 Days #16 tablet PRN Reason: Vitamin B Complex [Vitamin B Complex Tablet] 1 tab PO DAILY #30 tablet Ascorbic Acid [Vitamin C 500 mg Tablet] 500 mg PO BID #60 tablet Cholecalciferol (Vitamin D3) [Vitamin D3 1000 Unit Tablet] 2,000 unit PO DAILY #60 tablet Zinc Sulfate [Zinc-220 Capsule] 220 mg PO DAILY #30 capsule Home Medications: Amlodipine Besylate [Norvasc 10 mg Tablet] 10 mg PO DAILY 03/17/20 Benzonatate [Tessalon Perles 100 mg Capsule] 100 mg PO Q8HP PRN 03/17/20 Budesonide/Formoterol Fumarate [Symbicort HFA 160-4.5 mcg Inhaler 6 gm] 2 puff IH Q12 03/17/20 Cyclosporine 0.05% Oph Emulsio [Restasis 0.05% Oph Emulsion Pf 0.4 ml] 1 drop OU BID 03/17/20 Difluprednate [Durezol] 1 drop OS BID 03/17/20 Fenofibric Acid (Choline) [Fenofibric Acid] 135 mg PO DAILY 03/17/20 Ipratropium/Albuterol Sulfate [Combivent Respimat 4 gm Mdi] 1 puff IH QID 03/17/20 Irbesartan 300 mg PO DAILY 03/17/20 Montelukast Sodium [Singulair 10 mg Tablet] 10 mg PO QHS 03/17/20 Ascorbic Acid [Vitamin C 500 mg Tablet] 500 mg PO BID #60 tablet 03/21/20 Aspirin [Aspirin 325 mg Tablet] 325 mg PO QAM #30 tablet 03/21/20 Cholecalciferol (Vitamin D3) [Vitamin D3 1000 Unit Tablet] 2,000 unit PO DAILY #60 tablet 03/21/20 Dexamethasone [Decadron] 6 mg PO DAILY 5 Days #5 tablet 03/21/20 Ivermectin [Stromectol 3 mg Tablet] 12 mg PO ASDIR PRN 30 Days #16 tablet 03/21/20 Pantoprazole Sodium [Protonix [address] Tablet] 20 mg PO Q6AM #30 tablet. 03/21/20 Vitamin B Complex [Vitamin B Complex Tablet] 1 tab PO DAILY #30 tablet 03/21/20 Zinc Sulfate [Zinc-220 Capsule] 220 mg PO DAILY #30 capsule 03/21/20 History of Present Illiness History of Present Illness: JERROD STANLEY is a 84 year old female patient known to my practice who was evaluated in the office on 03/12/2020 for right earache. She had moderate amount of wax collection which was removed and prescribed NPH otic solution. She presented to the ED on 03/16/2020 due to worsening difficulty with breathing and reported hypoxemia with oxygen saturation in the range of 81-88% on room air at home. She reported slightly productive coughing and family reported that she was not her usual self. she denied any definite fever or chills. No chest pain or palpitation. No nausea, vomiting, or abdominal pain. She denied any known exposure to acutely ill someone or recently diagnosed with COVID-19 infection. Her initial ED evaluation was significant chest X ray and CTA chest and Abdominal that revealed bilateral lower lobe air space disease process suggestive of pneumonia and her positive serology test for anne virus infection. No demonstrable pulmonary embolism to account for her hypoxemia. Incidental findings of severe retrocardia hernia. Her morbidities are as listed below. she was advised hospitalization for further evaluation and management. Hospital Course Hospital Course: Patient was admitted for respiratory distress with hypoxemia suggestive of COVID pneumonia infection. Her CoVID test was reported positive. She was [facility] d[facility] and Ivermectin. Her inflammatory indices are on downward trend. She has afebrile for more than 48 hours and off supplemental oxygen since last clinical evaluation. She will be discharged home on Ivermectin 12 mg po qweekly, Dexamethazsone 6 mg po daily x 5 days to complete 10 days therapy. She will remain on Zinc, Vit C, Vit D, and B Complex supplementation. She will continue all her preadmission medication management. She was instructed to continue social distancing, frequent hand washing, and isolation. She will follow up in the office as instructed upon discharge. Physical Exam Vital Signs: Temp Pulse Resp BP Pulse Ox 98.7 F 78 17 145/53 H 95 03/21/20 11:37 03/21/20 14:00 03/21/20 11:37 03/21/20 11:37 03/21/20 11:37 Intake & Output 03/20/20 03/21/20 03/22/20 06:59 06:59 06:59 Intake Total 2046 2113 250 Balance 2046 2113 250 Weight 92.4 kg 92.1 kg General appearance: PRESENT: no acute distress, obese Head exam: PRESENT: atraumatic, normocephalic Eye exam: PRESENT: conjunctiva pink. ABSENT: pallor, sclera icterus Respiratory exam: PRESENT: clear to auscultation byron Cardiovascular exam: PRESENT: RRR, +S1, +S2. ABSENT: diastolic murmur, rubs, systolic murmur GI/Abdominal exam: PRESENT: normal bowel sounds, soft. ABSENT: tenderness Extremities exam: ABSENT: pedal edema Neurological exam: PRESENT: alert, awake, oriented to person, oriented to place, oriented to time, oriented to situation. Psychiatric exam: PRESENT: appropriate affect, normal mood. Skin exam: PRESENT: dry, intact, warm. Results Laboratory Results: WBC 7.4 10^3/uL (4.0-10.5) 03/21/20 04:22 RBC 4.58 10^6/uL (3.72-5.28) 03/21/20 04:22 Hgb 12.7 g/dL (12.0-15.5) 03/21/20 04:22 Hct 37.1 % (36.0-47.0) 03/21/20 04:22 MCV 81 fl (80-97) 03/21/20 04:22 MCH 27.6 pg (27.0-33.4) 03/21/20 04:22 MCHC 34.1 g/dL (32.0-36.0) 03/21/20 04:22 RDW 15.0 % (11.5-14.0) H 03/21/20 04:22 Plt Count 596 10^3/uL (150-450) H 03/21/20 04:22 Lymph % (Auto) Not Reportable 03/21/20 04:22 [place] % (Auto) Not Reportable 03/21/20 04:22 Eos % (Auto) Not Reportable 03/21/20 04:22 Baso % (Auto) Not Reportable 03/21/20 04:22 Absolute Neuts (auto) Not Reportable 03/21/20 04:22 Absolute Lymphs (auto) Not Reportable 03/21/20 04:22 Absolute Monos (auto) Not Reportable 03/21/20 04:22 Absolute Eos (auto) Not Reportable 03/21/20 04:22 Absolute Basos (auto) Not Reportable 03/21/20 04:22 Total Counted 100 03/21/20 04:22 Seg Neutrophils % Not Reportable 03/21/20 04:22 Seg Neuts % (Manual) 77 % (42-78) 03/21/20 04:22 Lymphocytes % (Manual) 15 % (13-45) 03/21/20 04:22 Monocytes % (Manual) 8 % (3-13) 03/21/20 04:22 Eosinophils % (Manual) 0 % (0-6) 03/21/20 04:22 Basophils % (Manual) 0 % (0-2) 03/21/20 04:22 Abs Neuts (Manual) 5.7 10^3/uL (1.7-8.2) 03/21/20 04:22 Abs Lymphs (Manual) 1.1 10^3/uL (0.5-4.7) 03/21/20 04:22 Abs Monocytes (Manual) 0.6 10^3/uL (0.1-1.4) 03/21/20 04:22 Absolute Eos (Manual) 0.0 10^3/uL (0.0-0.6) 03/21/20 04:22 Abs Basophils (Manual) 0.0 10^3/uL (0.0-0.2) 03/21/20 04:22 Platelet Comment INCREASED 03/21/20 04:22 Anisocytosis SLIGHT 03/21/20 04:22 PT 15.9 SEC (11.4-15.4) H 03/20/20 04:43 INR 1.25 03/20/20 04:43 APTT 37.9 SEC (23.5-35.8) H 03/20/20 04:43 Fibrinogen 386 mg/dL (209-497) 03/20/20 04:43 D-Dimer 0.56 ug/mL (0.00-0.50) H 03/20/20 04:43 Sodium 134.9 mmol/L (137-145) L 03/21/20 04:22 Potassium 4.7 mmol/L (3.6-5.0) 03/21/20 04:22 Chloride 103 mmol/L (98-107) 03/21/20 04:22 Carbon Dioxide 27 mmol/L (22-30) 03/21/20 04:22 Anion Gap 5 (5-19) 03/21/20 04:22 BUN 25 mg/dL (7-20) H 03/21/20 04:22 Creatinine 1.06 mg/dL (0.52-1.25) 03/21/20 04:22 Est GFR ( Amer) > 60 (>60) 03/21/20 04:22 Est GFR (MDRD) Non-Af 49 (>60) L 03/21/20 04:22 Glucose 114 mg/dL (75-110) H 03/21/20 04:22 Calcium 9.3 mg/dL (8.4-10.2) 03/21/20 04:22 Ferritin 292.00 ng/mL (11.1-264.0) H 03/16/20 20:30 Total Bilirubin 0.6 mg/dL (0.2-1.3) 03/21/20 04:22 Direct Bilirubin 0.4 mg/dL (0.0-0.4) 03/21/20 04:22 Neonat Total Bilirubin Not Reportable 03/21/20 04:22 Neonat Direct Bilirubin Not Reportable 03/21/20 04:22 Neonat Indirect Bili Not Reportable 03/21/20 04:22 AST 69 U/L (14-36) H 03/21/20 04:22 ALT 49 U/L (<35) H 03/21/20 04:22 Alkaline Phosphatase 55 U/L (38-126) 03/21/20 04:22 Lactate Dehydrogenase 305 U/L (120-246) H 03/16/20 20:30 Creatine Kinase 20 U/L (30-135) L 03/21/20 04:22 Troponin I < 0.012 ng/mL 03/16/20 20:30 C-Reactive Protein 22.6 mg/L (<10.0) H 03/21/20 04:22 NT-Pro-B Natriuret Pep 418 pg/mL (<450) 03/16/20 12:28 Total Protein 6.2 g/dL (6.3-8.2) L 03/21/20 04:22 Albumin 2.9 g/dL (3.5-5.0) L 03/21/20 04:22 Urine Color YELLOW 03/16/20 13:25 Urine Appearance CLEAR 03/16/20 13:25 Urine pH 5.0 (5.0-9.0) 03/16/20 13:25 Ur Specific [place] 1.017 03/16/20 13:25 Urine Protein 30 mg/dL (NEGATIVE) H 03/16/20 13:25 Urine Glucose (UA) NEGATIVE mg/dL (NEGATIVE) 03/16/20 13:25 Urine Ketones NEGATIVE mg/dL (NEGATIVE) 03/16/20 13:25 Urine Blood NEGATIVE (NEGATIVE) 03/16/20 13:25 Urine Nitrite NEGATIVE (NEGATIVE) 03/16/20 13:25 Urine Bilirubin NEGATIVE (NEGATIVE) 03/16/20 13:25 Urine Urobilinogen 4.0 mg/dL (<2.0) H 03/16/20 13:25 Ur Leukocyte Esterase TRACE (NEGATIVE) H 03/16/20 13:25 Urine WBC (Auto) 3 /HPF 03/16/20 13:25 Urine RBC (Auto) 0 /HPF 03/16/20 13:25 Urine Bacteria (Auto) TRACE /HPF 03/16/20 13:25 Squamous Epi Cells Auto 1 /HPF 03/16/20 13:25 Urine Mucus (Auto) RARE /LPF 03/16/20 13:25 Urine Ascorbic Acid NEGATIVE (NEGATIVE) 03/16/20 13:25 Influenza A (RT-PCR) NEGATIVE (NEGATIVE) 03/16/20 14:54 Influenza B (RT-PCR) NEGATIVE (NEGATIVE) 03/16/20 14:54 RSV (RT-PCR) NEGATIVE (NEGATIVE) 03/16/20 14:54 SARS-CoV-2 Rap RNA(RT-PCR) POSITIVE (NEGATIVE) H 03/16/20 14:54 Blood Type O POSITIVE 03/16/20 20:30 03/16/20 03/16/20 03/16/20 12:28 12:28 20:30 Troponin I < 0.012 < 0.012 NT-Pro-B Natriuret Pep 418 Impressions: Chest X-Ray 03/16/20 12:23 IMPRESSION: 1. Findings suggest early CHF exacerbation. Superimposed infection not excluded. 2. Large hiatal hernia better characterized on comparison radiographs. Chest/Abdomen CTA 03/16/20 16:52 IMPRESSION: No CT angio evidence of acute pulmonary emboli. Patchy bilateral peripheral alveolar and interstitial infiltrates. 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 Plan of Treatment: Post discharge COVID-19 infection management as noted in the summary. Goals: Reduce readmission risk. Medication management and close monitoring. Time Spent: Greater than 30 Minutes Stroke Is this a Stroke Patient?: No Acute Heart Failure Is this a Heart Failure Patient?: No
== END 2020-03-21 18:14 | disposition home or self-care (01) | DRG 177 ==
LOC: ER 11:57 → EH 18:21 → 3N 20:10
PROVIDERS: ADMIT Internal Medicine Geriatric Medicine; ATTEND Internal Medicine Geriatric Medicine
PROC: XW13325 Transfusion of Convalescent Plasma (Nonautologous) into Peripheral Vein, Percutaneous Approach, New Technology Group 5 (ICD-10-PCS; principal; 2020-03-17)
DX: U07.1 COVID-19 (principal); J12.82 Pneumonia due to coronavirus disease 2019; I10 Essential (primary) hypertension; J44.9 Chronic obstructive pulmonary disease, unspecified; K21.9 Gastro-esophageal reflux disease without esophagitis; E78.5 Hyperlipidemia, unspecified; K44.9 Diaphragmatic hernia without obstruction or gangrene; H40.9 Unspecified glaucoma; M19.91 Primary osteoarthritis, unspecified site; Z79.82 Long term (current) use of aspirin; Z79.899 Other long term (current) drug therapy; R09.02 Hypoxemia; Z88.0 Allergy status to penicillin; Z87.891 Personal history of nicotine dependence
CPT/HCPCS: 36415; 36430; 71045; 71275; 80053; 81001; 82550; 82728; 83615; 83880; 84484; 85025; 85379; 85384; 85610; 85730; 86140; 86900; 86901; 93005; 93010; 99285; 0241U; C9803; J1100; J1650; J3490; J7050; J7120